=== PATIENT | female | born 1965 | race Caucasian/White ===

== ENCOUNTER → 2016-05-17 | Outpatient (CLI) | payer BC ==
[~2016-05-17] MED LIST: COMPAZINE 110 MG/TAB PO; LEVAQUIN 5500 MG/TA1 PO; POTASSIUM20 MEQ PO; ZOFRAN4 M1 PO; [UNRECOGNIZED DRUG - CODE] PO
== END ==
LOC: RAD 08:57
DX: C50.411 Malignant neoplasm of upper-outer quadrant of right female breast (principal); K80.80 Other cholelithiasis without obstruction
CPT/HCPCS: Q9967

== ENCOUNTER → 2016-06-02 | Outpatient (CLI) | payer BC ==
[2013-01-12 03:43] VITALS: BP 112/72
== END ==
LOC: LAB 08:10
DX: R42 Dizziness and giddiness (principal)

== ENCOUNTER → 2016-09-26 | Outpatient (CLI) | payer BC ==
[2013-01-12 03:43] VITALS: BP 112/72
== END ==
LOC: LAB 08:17
DX: C50.411 Malignant neoplasm of upper-outer quadrant of right female breast (principal)

== ENCOUNTER → 2017-03-27 | Outpatient (CLI) | payer BC ==
[2013-01-12 03:43] VITALS: BP 112/72
[2017-03-27 09:49] LABS: EOS # 0.2 (0.04-0.40); EOS % 3.1 % (1.0-5.0); HEMATOCRIT 44.9 % (37.0-47.0); HEMOGLOBIN 14.6 g/dL (12.5-16.0); LYMPH# 2.2 (1.50-4.00); MEAN CELL VOLUME 96 fl (78-100); MEAN CORPUSCULAR HEMOGLOBIN 31 pg (27-31); MEAN CORPUSCULAR HGB CONC 33 g/dL (33-37); MEAN PLATELET VOLUME 10.5 fl (7.4-10.4); MONO # 0.7 (0.20-0.80); NEU # 4.6 (1.40-6.50); PLATELET COUNT 268 K/mm3 (130-400); RED BLOOD COUNT 4.67 M/mm3 (4.10-5.30); RED CELL DISTRIBUTION WIDTH 13.3 % (11.5-14.5); WHITE BLOOD COUNT 7.7 K/mm3 (4.8-10.8)
[2017-03-27 11:22] LABS: BUN/CREATININE RATIO 9.2 (6.0-26.0); CALCIUM 9.3 mg/dL (8.4-10.2); POTASSIUM 3.3 mmol/L (3.6-5.0); TOTAL BILIRUBIN 0.4 mg/dL (0.2-1.3); TOTAL PROTEIN 7.5 g/dL (6.3-8.2)
== END ==
LOC: RAD 08:41
PROVIDERS: Internal Medicine
DX: C50.411 Malignant neoplasm of upper-outer quadrant of right female breast (principal); Z90.13 Acquired absence of bilateral breasts and nipples; J94.1 Fibrothorax; J98.4 Other disorders of lung; K80.20 Calculus of gallbladder without cholecystitis without obstruction; N20.0 Calculus of kidney; K76.9 Liver disease, unspecified
CPT/HCPCS: Q9967

== ENCOUNTER → 2017-05-01 | Day surgery (SDC) | payer BC ==
[2013-01-12 03:43] VITALS: BP 112/72
== END ==
LOC: MSO 08:37
DX: R10.13 Epigastric pain (principal); Z12.11 Encounter for screening for malignant neoplasm of colon; D12.0 Benign neoplasm of cecum; Z85.3 Personal history of malignant neoplasm of breast; F17.210 Nicotine dependence, cigarettes, uncomplicated; Z88.1 Allergy status to other antibiotic agents; K80.20 Calculus of gallbladder without cholecystitis without obstruction; Z88.0 Allergy status to penicillin; Z90.13 Acquired absence of bilateral breasts and nipples
CPT/HCPCS: 00811; J2704; J3010; J7120

== ENCOUNTER 2017-06-08 20:19 | Emergency (ER) | payer BC ==
[~2017-06-08] VITALS: Ht 167.6 cm; Wt 62.7 kg
[2017-06-08] MEDS ORDERED: TAMOXIFEN CITRA20 MG PO (22:10)
[2017-06-08 23:01] VITALS: BP 150/70
== END 2017-06-08 23:01 | disposition home or self-care (01) ==
LOC: ED 20:19
DX: K59.00 Constipation, unspecified (principal); K64.4 Residual hemorrhoidal skin tags

== ENCOUNTER → 2017-10-03 | Outpatient (CLI) | payer BC ==
[~2017-10-03] MED LIST changes: +TAMOXIFEN CITRA20 MG PO
[2017-10-03 08:21] LABS: CALCIUM 9.5 mg/dL (8.4-10.2); POTASSIUM 4.1 mmol/L (3.6-5.0); TOTAL BILIRUBIN 0.3 mg/dL (0.2-1.3); TOTAL PROTEIN 7.7 g/dL (6.3-8.2)
[2017-10-03 08:49] LABS: EOS # 0.3 (0.04-0.40); EOS % 3.7 % (1.0-5.0); HEMATOCRIT 44.5 % (37.0-47.0); HEMOGLOBIN 14.5 g/dL (12.5-16.0); LYMPH# 2.8 (1.50-4.00); MEAN CELL VOLUME 97 fl (78-100); MEAN CORPUSCULAR HEMOGLOBIN 32 pg (27-31); MEAN CORPUSCULAR HGB CONC 33 g/dL (33-37); MEAN PLATELET VOLUME 10.3 fl (7.4-10.4); PLATELET COUNT 267 K/mm3 (130-400); RED CELL DISTRIBUTION WIDTH 13.3 % (11.5-14.5); WHITE BLOOD COUNT 8.2 K/mm3 (4.8-10.8)
== END ==
LOC: LAB 07:50
PROVIDERS: Internal Medicine
DX: C50.919 Malignant neoplasm of unspecified site of unspecified female breast (principal)

== ENCOUNTER → 2017-10-12 | Outpatient (CLI) | payer BC | LOC: RAD 08:27 | DX: C78.7 Secondary malignant neoplasm of liver and intrahepatic bile duct (principal); K80.80 Other cholelithiasis without obstruction; G95.89 Other specified diseases of spinal cord; C50.919 Malignant neoplasm of unspecified site of unspecified female breast; M25.552 Pain in left hip; R97.8 Other abnormal tumor markers | CPT/HCPCS: Q9967 ==

== ENCOUNTER → 2017-11-01 | Outpatient (CLI) | payer BC ==
[2017-11-01 08:36] LABS: EOS # 0.1 (0.04-0.40); EOS % 1.2 % (1.0-5.0); HEMATOCRIT 42.6 % (37.0-47.0); HEMOGLOBIN 13.8 g/dL (12.5-16.0); LYMPH# 3.2 (1.50-4.00); MEAN CELL VOLUME 96 fl (78-100); MEAN CORPUSCULAR HEMOGLOBIN 31 pg (27-31); MEAN CORPUSCULAR HGB CONC 32 g/dL (33-37); MEAN PLATELET VOLUME 10.3 fl (7.4-10.4); MONO # 0.6 (0.20-0.80); NEU # 6.5 (1.40-6.50); PLATELET COUNT 240 K/mm3 (130-400); RED BLOOD COUNT 4.46 M/mm3 (4.10-5.30); RED CELL DISTRIBUTION WIDTH 13.1 % (11.5-14.5); WHITE BLOOD COUNT 10.4 K/mm3 (4.8-10.8)
[2017-11-01 09:12] LABS: ALBUMIN 4.1 g/dL (3.5-5.0); CALCIUM 9.3 mg/dL (8.4-10.2); POTASSIUM 3.1 mmol/L (3.6-5.0); TOTAL BILIRUBIN 0.5 mg/dL (0.2-1.3); TOTAL PROTEIN 7.4 g/dL (6.3-8.2)
== END ==
LOC: LAB 08:21
PROVIDERS: Internal Medicine
DX: C50.911 Malignant neoplasm of unspecified site of right female breast (principal)

== ENCOUNTER → 2017-11-08 | Outpatient (CLI) | payer BC ==
[2017-11-08 08:30] LABS: EOS # 0.1 (0.04-0.40); EOS % 1.7 % (1.0-5.0); HEMATOCRIT 42.3 % (37.0-47.0); HEMOGLOBIN 14.3 g/dL (12.5-16.0); LYMPH# 1.8 (1.50-4.00); MEAN CELL VOLUME 94 fl (78-100); MEAN CORPUSCULAR HEMOGLOBIN 32 pg (27-31); MEAN CORPUSCULAR HGB CONC 34 g/dL (33-37); MEAN PLATELET VOLUME 10.3 fl (7.4-10.4); MONO # 0.4 (0.20-0.80); NEU # 4.2 (1.40-6.50); PLATELET COUNT 273 K/mm3 (130-400); RED BLOOD COUNT 4.49 M/mm3 (4.10-5.30); RED CELL DISTRIBUTION WIDTH 12.9 % (11.5-14.5); WHITE BLOOD COUNT 6.4 K/mm3 (4.8-10.8)
[2017-11-08 08:44] LABS: ALBUMIN 4.3 g/dL (3.5-5.0); CALCIUM 9.1 mg/dL (8.4-10.2); POTASSIUM 3.7 mmol/L (3.6-5.0); TOTAL BILIRUBIN 0.5 mg/dL (0.2-1.3); TOTAL PROTEIN 7.7 g/dL (6.3-8.2)
== END ==
LOC: LAB 08:19
PROVIDERS: Internal Medicine
DX: C50.919 Malignant neoplasm of unspecified site of unspecified female breast (principal)

== ENCOUNTER → 2017-11-16 | Outpatient (CLI) | payer BC ==
[2017-11-16 11:22] LABS: EOS # 0.1 (0.04-0.40); EOS % 2.7 % (1.0-5.0); HEMATOCRIT 41.6 % (37.0-47.0); LYMPH# 1.4 (1.50-4.00); MEAN CELL VOLUME 96 fl (78-100); MEAN CORPUSCULAR HEMOGLOBIN 32 pg (27-31); MEAN CORPUSCULAR HGB CONC 34 g/dL (33-37); MEAN PLATELET VOLUME 10.5 fl (7.4-10.4); MONO # 0.2 (0.20-0.80); NEU # 2.7 (1.40-6.50); PLATELET COUNT 273 K/mm3 (130-400); RED BLOOD COUNT 4.35 M/mm3 (4.10-5.30); RED CELL DISTRIBUTION WIDTH 13.9 % (11.5-14.5); WHITE BLOOD COUNT 4.4 K/mm3 (4.8-10.8)
[2017-11-16 11:27] LABS: ALBUMIN 4.1 g/dL (3.5-5.0); TOTAL BILIRUBIN 0.4 mg/dL (0.2-1.3); TOTAL PROTEIN 7.4 g/dL (6.3-8.2)
== END ==
LOC: LAB 10:37
PROVIDERS: Internal Medicine
DX: C50.919 Malignant neoplasm of unspecified site of unspecified female breast (principal)

== ENCOUNTER → 2017-11-22 | Outpatient (CLI) | payer BC ==
[2017-11-22 08:51] LABS: HEMATOCRIT 39.4 % (37.0-47.0); HEMOGLOBIN 13.4 g/dL (12.5-16.0); MEAN CELL VOLUME 96 fl (78-100); MEAN CORPUSCULAR HEMOGLOBIN 33 pg (27-31); MEAN CORPUSCULAR HGB CONC 34 g/dL (33-37); MEAN PLATELET VOLUME 10.3 fl (7.4-10.4); PLATELET COUNT 339 K/mm3 (130-400); RED CELL DISTRIBUTION WIDTH 14.7 % (11.5-14.5); WHITE BLOOD COUNT 10.9 K/mm3 (4.8-10.8)
[2017-11-22 09:10] LABS: ALBUMIN 4.2 g/dL (3.5-5.0); CALCIUM 9.2 mg/dL (8.4-10.2); POTASSIUM 3.2 mmol/L (3.6-5.0); TOTAL BILIRUBIN 0.2 mg/dL (0.2-1.3); TOTAL PROTEIN 7.2 g/dL (6.3-8.2)
[2017-11-22 09:29] LABS: BAND 1 % (0-10); LYMPHOCYTE 27 % (20-51); MONOCYTE 3 % (3-10); NEUTROPHILS 69 % (42-75); NUCLEATED RED BLOOD CELL 1 (0-6)
== END ==
LOC: LAB 08:32
PROVIDERS: Internal Medicine
DX: C50.411 Malignant neoplasm of upper-outer quadrant of right female breast (principal); C78.7 Secondary malignant neoplasm of liver and intrahepatic bile duct; C79.51 Secondary malignant neoplasm of bone; Z17.0 Estrogen receptor positive status [ER+]

== ENCOUNTER → 2017-11-29 | Outpatient (CLI) | payer BC ==
[~2017-11-29] VITALS: Ht 167.6 cm; Wt 62.7 kg
[2017-11-29 13:23] VITALS: BP 118/73
[2017-11-29 13:32] LABS: HEMATOCRIT 38.5 % (37.0-47.0); HEMOGLOBIN 12.7 g/dL (12.5-16.0); MEAN CELL VOLUME 97 fl (78-100); MEAN CORPUSCULAR HEMOGLOBIN 32 pg (27-31); MEAN CORPUSCULAR HGB CONC 33 g/dL (33-37); MEAN PLATELET VOLUME 10.5 fl (7.4-10.4); PLATELET COUNT 327 K/mm3 (130-400); RED BLOOD COUNT 3.98 M/mm3 (4.10-5.30); WHITE BLOOD COUNT 11.8 K/mm3 (4.8-10.8)
[2017-11-29 13:41] LABS: CALCIUM 9.6 mg/dL (8.4-10.2); POTASSIUM 3.3 mmol/L (3.6-5.0); TOTAL BILIRUBIN 0.4 mg/dL (0.2-1.3); TOTAL PROTEIN 7.1 g/dL (6.3-8.2)
[2017-11-29 14:32] LABS: LYMPHOCYTE 35 % (20-51); MONOCYTE 3 % (3-10); NEUTROPHILS 62 % (42-75)
== END ==
LOC: AMSURD 12:57 → LAB 12:57
PROVIDERS: Internal Medicine
DX: C50.411 Malignant neoplasm of upper-outer quadrant of right female breast (principal); C78.7 Secondary malignant neoplasm of liver and intrahepatic bile duct; C79.51 Secondary malignant neoplasm of bone; Z17.0 Estrogen receptor positive status [ER+]

== ENCOUNTER → 2017-12-06 | Outpatient (CLI) | payer BC ==
[2017-11-29 13:23] VITALS: BP 118/73
[2017-12-06 08:55] LABS: ALBUMIN 4.1 g/dL (3.5-5.0); CALCIUM 9.2 mg/dL (8.4-10.2); HEMATOCRIT 40.4 % (37.0-47.0); HEMOGLOBIN 13.4 g/dL (12.5-16.0); MEAN CELL VOLUME 99 fl (78-100); MEAN CORPUSCULAR HEMOGLOBIN 33 pg (27-31); MEAN CORPUSCULAR HGB CONC 33 g/dL (33-37); MEAN PLATELET VOLUME 10.8 fl (7.4-10.4); PLATELET COUNT 346 K/mm3 (130-400); POTASSIUM 4.4 mmol/L (3.6-5.0); RED BLOOD COUNT 4.09 M/mm3 (4.10-5.30); RED CELL DISTRIBUTION WIDTH 15.7 % (11.5-14.5); TOTAL BILIRUBIN 0.5 mg/dL (0.2-1.3); TOTAL PROTEIN 7.3 g/dL (6.3-8.2); WHITE BLOOD COUNT 9.6 K/mm3 (4.8-10.8)
[2017-12-06 11:59] LABS: LYMPHOCYTE 44 % (20-51); MONOCYTE 4 % (3-10); NEUTROPHILS 51 % (42-75)
== END ==
LOC: LAB 08:14
PROVIDERS: Internal Medicine
DX: C50.411 Malignant neoplasm of upper-outer quadrant of right female breast (principal); C78.7 Secondary malignant neoplasm of liver and intrahepatic bile duct; C79.51 Secondary malignant neoplasm of bone; Z17.0 Estrogen receptor positive status [ER+]

== ENCOUNTER → 2017-12-13 | Outpatient (CLI) | payer BC ==
[2017-11-29 13:23] VITALS: BP 118/73
[2017-12-13 08:55] LABS: EOS # 0.1 (0.04-0.40); EOS % 0.8 % (1.0-5.0); HEMATOCRIT 39.1 % (37.0-47.0); HEMOGLOBIN 13.1 g/dL (12.5-16.0); LYMPH# 2.6 (1.50-4.00); MEAN CELL VOLUME 99 fl (78-100); MEAN CORPUSCULAR HEMOGLOBIN 33 pg (27-31); MEAN CORPUSCULAR HGB CONC 34 g/dL (33-37); MEAN PLATELET VOLUME 10.2 fl (7.4-10.4); MONO # 0.5 (0.20-0.80); NEU # 5.8 (1.40-6.50); PLATELET COUNT 291 K/mm3 (130-400); RED BLOOD COUNT 3.97 M/mm3 (4.10-5.30); RED CELL DISTRIBUTION WIDTH 16.3 % (11.5-14.5)
[2017-12-13 09:18] LABS: ALBUMIN 3.9 g/dL (3.5-5.0); CALCIUM 9.1 mg/dL (8.4-10.2); POTASSIUM 3.5 mmol/L (3.6-5.0); TOTAL BILIRUBIN 0.4 mg/dL (0.2-1.3); TOTAL PROTEIN 7.1 g/dL (6.3-8.2)
== END ==
LOC: LAB 08:40
PROVIDERS: Internal Medicine
DX: C50.411 Malignant neoplasm of upper-outer quadrant of right female breast (principal); C78.7 Secondary malignant neoplasm of liver and intrahepatic bile duct; C79.51 Secondary malignant neoplasm of bone; Z17.0 Estrogen receptor positive status [ER+]

== ENCOUNTER → 2017-12-20 | Outpatient (CLI) | payer BC ==
[2017-11-29 13:23] VITALS: BP 118/73
[2017-12-20 08:53] LABS: EOS # 0.1 (0.04-0.40); EOS % 0.7 % (1.0-5.0); HEMATOCRIT 41.4 % (37.0-47.0); HEMOGLOBIN 13.7 g/dL (12.5-16.0); LYMPH# 3.7 (1.50-4.00); MEAN CELL VOLUME 98 fl (78-100); MEAN CORPUSCULAR HEMOGLOBIN 33 pg (27-31); MEAN CORPUSCULAR HGB CONC 33 g/dL (33-37); MEAN PLATELET VOLUME 10.6 fl (7.4-10.4); MONO # 0.6 (0.20-0.80); NEU # 3.9 (1.40-6.50); PLATELET COUNT 328 K/mm3 (130-400); RED BLOOD COUNT 4.22 M/mm3 (4.10-5.30); RED CELL DISTRIBUTION WIDTH 16.5 % (11.5-14.5); WHITE BLOOD COUNT 8.2 K/mm3 (4.8-10.8)
[2017-12-20 09:02] LABS: ALBUMIN 4.1 g/dL (3.5-5.0); CALCIUM 9.1 mg/dL (8.4-10.2); POTASSIUM 3.3 mmol/L (3.6-5.0); TOTAL BILIRUBIN 0.5 mg/dL (0.2-1.3); TOTAL PROTEIN 7.2 g/dL (6.3-8.2)
== END ==
LOC: LAB 08:30
PROVIDERS: Internal Medicine
DX: C50.411 Malignant neoplasm of upper-outer quadrant of right female breast (principal); C78.7 Secondary malignant neoplasm of liver and intrahepatic bile duct; C79.51 Secondary malignant neoplasm of bone; Z17.0 Estrogen receptor positive status [ER+]

== ENCOUNTER → 2017-12-22 | Outpatient (CLI) | payer BC ==
[2017-11-29 13:23] VITALS: BP 118/73
== END ==
LOC: RAD 08:54
DX: C78.7 Secondary malignant neoplasm of liver and intrahepatic bile duct (principal); M89.9 Disorder of bone, unspecified; C50.411 Malignant neoplasm of upper-outer quadrant of right female breast; Z92.3 Personal history of irradiation
CPT/HCPCS: Q9967

== ENCOUNTER → 2017-12-28 | Outpatient (CLI) | payer BC ==
[2017-11-29 13:23] VITALS: BP 118/73
[2017-12-28 09:10] LABS: EOS # 0.1 (0.04-0.40); HEMATOCRIT 41.5 % (37.0-47.0); HEMOGLOBIN 13.8 g/dL (12.5-16.0); LYMPH# 2.1 (1.50-4.00); MEAN CELL VOLUME 100 fl (78-100); MEAN CORPUSCULAR HEMOGLOBIN 33 pg (27-31); MEAN CORPUSCULAR HGB CONC 33 g/dL (33-37); MEAN PLATELET VOLUME 10.7 fl (7.4-10.4); MONO # 0.4 (0.20-0.80); NEU # 5.2 (1.40-6.50); PLATELET COUNT 298 K/mm3 (130-400); RED BLOOD COUNT 4.17 M/mm3 (4.10-5.30); RED CELL DISTRIBUTION WIDTH 16.8 % (11.5-14.5); WHITE BLOOD COUNT 7.9 K/mm3 (4.8-10.8)
[2017-12-28 09:32] LABS: ALBUMIN 4.3 g/dL (3.5-5.0); CALCIUM 9.3 mg/dL (8.4-10.2); POTASSIUM 3.8 mmol/L (3.6-5.0); TOTAL BILIRUBIN 0.4 mg/dL (0.2-1.3); TOTAL PROTEIN 7.4 g/dL (6.3-8.2)
== END ==
LOC: LAB 08:56
PROVIDERS: Internal Medicine
DX: C50.411 Malignant neoplasm of upper-outer quadrant of right female breast (principal); C78.7 Secondary malignant neoplasm of liver and intrahepatic bile duct; C79.51 Secondary malignant neoplasm of bone; Z17.0 Estrogen receptor positive status [ER+]

== ENCOUNTER → 2018-01-03 | Outpatient (CLI) | payer BC ==
[2017-11-29 13:23] VITALS: BP 118/73
[2018-01-03 12:10] LABS: ALBUMIN 4.2 g/dL (3.5-5.0); CALCIUM 9.3 mg/dL (8.4-10.2); POTASSIUM 4.8 mmol/L (3.6-5.0); TOTAL BILIRUBIN 0.4 mg/dL (0.2-1.3); TOTAL PROTEIN 7.2 g/dL (6.3-8.2)
[2018-01-03 12:14] LABS: EOS # 0.1 (0.04-0.40); EOS % 0.7 % (1.0-5.0); HEMATOCRIT 39.5 % (37.0-47.0); HEMOGLOBIN 13.3 g/dL (12.5-16.0); MEAN CELL VOLUME 100 fl (78-100); MEAN CORPUSCULAR HEMOGLOBIN 34 pg (27-31); MEAN CORPUSCULAR HGB CONC 34 g/dL (33-37); MEAN PLATELET VOLUME 10.7 fl (7.4-10.4); MONO # 0.6 (0.20-0.80); PLATELET COUNT 306 K/mm3 (130-400); RED BLOOD COUNT 3.96 M/mm3 (4.10-5.30); RED CELL DISTRIBUTION WIDTH 16.7 % (11.5-14.5)
[2018-01-03 12:29] LABS: NEU # 9.2 (1.40-6.50)
== END ==
LOC: LAB 11:32
PROVIDERS: Internal Medicine
DX: C50.919 Malignant neoplasm of unspecified site of unspecified female breast (principal)

== ENCOUNTER → 2018-01-11 | Outpatient (CLI) | payer BC ==
[2017-11-29 13:23] VITALS: BP 118/73
[2018-01-11 09:15] LABS: EOS # 0.1 (0.04-0.40); EOS % 0.7 % (1.0-5.0); HEMATOCRIT 42.6 % (37.0-47.0); HEMOGLOBIN 13.9 g/dL (12.5-16.0); LYMPH# 2.6 (1.50-4.00); MEAN CELL VOLUME 100 fl (78-100); MEAN CORPUSCULAR HEMOGLOBIN 33 pg (27-31); MEAN CORPUSCULAR HGB CONC 33 g/dL (33-37); MEAN PLATELET VOLUME 10.8 fl (7.4-10.4); MONO # 0.4 (0.20-0.80); NEU # 4.1 (1.40-6.50); PLATELET COUNT 291 K/mm3 (130-400); RED BLOOD COUNT 4.27 M/mm3 (4.10-5.30); RED CELL DISTRIBUTION WIDTH 16.6 % (11.5-14.5); WHITE BLOOD COUNT 7.1 K/mm3 (4.8-10.8)
[2018-01-11 09:18] LABS: ALBUMIN 4.4 g/dL (3.5-5.0); CALCIUM 9.2 mg/dL (8.4-10.2); POTASSIUM 4.1 mmol/L (3.6-5.0); TOTAL BILIRUBIN 0.5 mg/dL (0.2-1.3); TOTAL PROTEIN 7.4 g/dL (6.3-8.2)
== END ==
LOC: LAB 08:29
PROVIDERS: Internal Medicine
DX: C50.919 Malignant neoplasm of unspecified site of unspecified female breast (principal)

== ENCOUNTER → 2018-01-18 | Outpatient (CLI) | payer BC ==
[2017-11-29 13:23] VITALS: BP 118/73
[2018-01-18 09:34] LABS: EOS # 0.1 (0.04-0.40); EOS % 1.1 % (1.0-5.0); HEMATOCRIT 39.1 % (37.0-47.0); MEAN CELL VOLUME 100 fl (78-100); MEAN CORPUSCULAR HEMOGLOBIN 33 pg (27-31); MEAN CORPUSCULAR HGB CONC 33 g/dL (33-37); MEAN PLATELET VOLUME 10.9 fl (7.4-10.4); MONO # 0.4 (0.20-0.80); NEU # 3.9 (1.40-6.50); PLATELET COUNT 277 K/mm3 (130-400); RED CELL DISTRIBUTION WIDTH 16.2 % (11.5-14.5); WHITE BLOOD COUNT 6.5 K/mm3 (4.8-10.8)
[2018-01-18 09:39] LABS: ALBUMIN 4.3 g/dL (3.5-5.0); CALCIUM 9.2 mg/dL (8.4-10.2); POTASSIUM 3.5 mmol/L (3.6-5.0); TOTAL BILIRUBIN 0.4 mg/dL (0.2-1.3); TOTAL PROTEIN 7.2 g/dL (6.3-8.2)
== END ==
LOC: LAB 09:04
PROVIDERS: Internal Medicine
DX: C50.919 Malignant neoplasm of unspecified site of unspecified female breast (principal)

== ENCOUNTER 2018-01-24 20:30 | Emergency (ER) | payer BC ==
[~2018-01-24] VITALS: Ht 167.6 cm; Wt 60.9 kg
[2018-01-24] MEDS ORDERED: ZANTAC150 M1 PO (20:43)
[2018-01-24] MEDS ORDERED: NYSTATIN 100MU/M1 ML PO (20:43)
[2018-01-24] MEDS ORDERED: COMPAZINE10 M2 PO (20:44)
[2018-01-24 21:37] LABS: EOS # 0.1 (0.04-0.40); EOS % 1.4 % (1.0-5.0); HEMATOCRIT 34.8 % (37.0-47.0); HEMOGLOBIN 11.9 g/dL (12.5-16.0); LYMPH# 3.1 (1.50-4.00); MEAN CELL VOLUME 100 fl (78-100); MEAN CORPUSCULAR HEMOGLOBIN 34 pg (27-31); MEAN CORPUSCULAR HGB CONC 34 g/dL (33-37); MEAN PLATELET VOLUME 10.7 fl (7.4-10.4); MONO # 0.5 (0.20-0.80); NEU # 4.1 (1.40-6.50); PLATELET COUNT 252 K/mm3 (130-400); RED BLOOD COUNT 3.49 M/mm3 (4.10-5.30); RED CELL DISTRIBUTION WIDTH 16.1 % (11.5-14.5); WHITE BLOOD COUNT 7.9 K/mm3 (4.8-10.8)
[2018-01-24 21:40] LABS: ALBUMIN 3.9 g/dL (3.5-5.0); CALCIUM 9.2 mg/dL (8.4-10.2); POTASSIUM 3.4 mmol/L (3.6-5.0); TOTAL BILIRUBIN 0.4 mg/dL (0.2-1.3); TOTAL PROTEIN 6.5 g/dL (6.3-8.2)
[2018-01-24 21:43] LABS: PARTIAL THROMBOPLASTIN TIME 27.7 SECONDS (21.0-32.0); PROTHROMBIN TIME 9.6 SECONDS (9.0-12.0)
[2018-01-24 23:14] LABS: PH-URINE 6.5 (5.0 - 8.0); URINE APPEARANCE CLEAR; URINE COLOR LT YELLOW
[2018-01-24 23:15] LABS: URINE BILIRUBIN NEGATIVE (NEGATIVE); URINE BLOOD TRACE (NEGATIVE); URINE GLUCOSE NEGATIVE (NEGATIVE); URINE KETONE NEGATIVE (NEGATIVE); URINE LEUKOCYTE ESTERASE NEGATIVE (NEGATIVE); URINE NITRATE NEGATIVE (NEGATIVE); URINE PROTEIN(semi-quant) TRACE mg/dL (NEGATIVE); URINE UROBILINOGEN NORMAL (NORMAL)
[2018-01-24 23:22] LABS: URINE WBC 0-1 /hpf (0-3)
[2018-01-24 23:39] VITALS: BP 104/64
== END 2018-01-24 23:39 | disposition home or self-care (01) ==
LOC: ED 20:30
PROVIDERS: Nurse Practitioner
DX: E86.0 Dehydration (principal); R11.0 Nausea; C50.919 Malignant neoplasm of unspecified site of unspecified female breast; C78.7 Secondary malignant neoplasm of liver and intrahepatic bile duct; C79.51 Secondary malignant neoplasm of bone; Z79.899 Other long term (current) drug therapy; Z90.13 Acquired absence of bilateral breasts and nipples; F17.210 Nicotine dependence, cigarettes, uncomplicated
CPT/HCPCS: J2550; J7030; Q9967

== ENCOUNTER → 2018-02-01 | Outpatient (CLI) | payer BC ==
[2018-01-24 23:39] VITALS: BP 104/64
[~2018-02-01] MED LIST changes: +COMPAZINE10 M2 PO; +NYSTATIN 100MU/M1 ML PO; +ZANTAC150 M1 PO
[2018-02-01 09:30] LABS: EOS # 0.1 (0.04-0.40); EOS % 0.8 % (1.0-5.0); HEMATOCRIT 38.5 % (37.0-47.0); HEMOGLOBIN 12.8 g/dL (12.5-16.0); LYMPH# 1.9 (1.50-4.00); MEAN CELL VOLUME 102 fl (78-100); MEAN CORPUSCULAR HEMOGLOBIN 34 pg (27-31); MEAN CORPUSCULAR HGB CONC 33 g/dL (33-37); MEAN PLATELET VOLUME 10.3 fl (7.4-10.4); MONO # 0.4 (0.20-0.80); NEU # 3.7 (1.40-6.50); PLATELET COUNT 321 K/mm3 (130-400); RED BLOOD COUNT 3.79 M/mm3 (4.10-5.30); RED CELL DISTRIBUTION WIDTH 16.2 % (11.5-14.5); WHITE BLOOD COUNT 6.1 K/mm3 (4.8-10.8)
[2018-02-01 09:36] LABS: ALBUMIN 4.1 g/dL (3.5-5.0); CALCIUM 9.2 mg/dL (8.4-10.2); POTASSIUM 3.9 mmol/L (3.6-5.0); TOTAL BILIRUBIN 0.5 mg/dL (0.2-1.3); TOTAL PROTEIN 6.8 g/dL (6.3-8.2)
== END ==
LOC: LAB 09:12
PROVIDERS: Internal Medicine
DX: C50.919 Malignant neoplasm of unspecified site of unspecified female breast (principal)

== ENCOUNTER → 2018-02-09 | Outpatient (CLI) | payer BC ==
[2018-01-24 23:39] VITALS: BP 104/64
[2018-02-09 09:43] LABS: EOS % 0.6 % (1.0-5.0); HEMATOCRIT 41.3 % (37.0-47.0); HEMOGLOBIN 13.7 g/dL (12.5-16.0); LYMPH# 1.6 (1.50-4.00); MEAN CELL VOLUME 102 fl (78-100); MEAN CORPUSCULAR HEMOGLOBIN 34 pg (27-31); MEAN CORPUSCULAR HGB CONC 33 g/dL (33-37); MEAN PLATELET VOLUME 10.2 fl (7.4-10.4); MONO # 0.4 (0.20-0.80); NEU # 4.2 (1.40-6.50); PLATELET COUNT 296 K/mm3 (130-400); RED BLOOD COUNT 4.04 M/mm3 (4.10-5.30); RED CELL DISTRIBUTION WIDTH 15.3 % (11.5-14.5); WHITE BLOOD COUNT 6.3 K/mm3 (4.8-10.8)
[2018-02-09 10:22] LABS: ALBUMIN 4.3 g/dL (3.5-5.0); CALCIUM 9.2 mg/dL (8.4-10.2); POTASSIUM 3.6 mmol/L (3.6-5.0); TOTAL BILIRUBIN 0.4 mg/dL (0.2-1.3); TOTAL PROTEIN 7.4 g/dL (6.3-8.2)
== END ==
LOC: LAB 09:32
PROVIDERS: Internal Medicine
DX: C50.919 Malignant neoplasm of unspecified site of unspecified female breast (principal)

== ENCOUNTER → 2018-02-15 | Outpatient (CLI) | payer BC ==
[2018-01-24 23:39] VITALS: BP 104/64
[2018-02-15 08:41] LABS: BASO # 0.1 (0.02-0.10); EOS # 0.1 (0.04-0.40); EOS % 1.2 % (1.0-5.0); HEMATOCRIT 40.3 % (37.0-47.0); HEMOGLOBIN 13.6 g/dL (12.5-16.0); LYMPH# 2.3 (1.50-4.00); MEAN CELL VOLUME 103 fl (78-100); MEAN CORPUSCULAR HEMOGLOBIN 35 pg (27-31); MEAN CORPUSCULAR HGB CONC 34 g/dL (33-37); MEAN PLATELET VOLUME 10.2 fl (7.4-10.4); NEU # 5.5 (1.40-6.50); PLATELET COUNT 344 K/mm3 (130-400); RED BLOOD COUNT 3.91 M/mm3 (4.10-5.30); RED CELL DISTRIBUTION WIDTH 15.3 % (11.5-14.5)
[2018-02-15 10:12] LABS: ALBUMIN 4.1 g/dL (3.5-5.0); CALCIUM 9.4 mg/dL (8.4-10.2); POTASSIUM 4.6 mmol/L (3.6-5.0); TOTAL BILIRUBIN 0.2 mg/dL (0.2-1.3); TOTAL PROTEIN 7.2 g/dL (6.3-8.2)
== END ==
LOC: LAB 08:05
PROVIDERS: Internal Medicine
DX: C50.411 Malignant neoplasm of upper-outer quadrant of right female breast (principal); C78.7 Secondary malignant neoplasm of liver and intrahepatic bile duct; C79.51 Secondary malignant neoplasm of bone

== ENCOUNTER → 2018-02-21 | Outpatient (CLI) | payer BC ==
[2018-01-24 23:39] VITALS: BP 104/64
== END ==
LOC: RAD 09:01
DX: C78.7 Secondary malignant neoplasm of liver and intrahepatic bile duct (principal); M89.9 Disorder of bone, unspecified; C50.919 Malignant neoplasm of unspecified site of unspecified female breast; Z95.828 Presence of other vascular implants and grafts
CPT/HCPCS: J1644; Q9967

== ENCOUNTER → 2018-02-26 | Outpatient (CLI) | payer BC ==
[2018-02-26 08:50] LABS: EOS # 0.2 (0.04-0.40); EOS % 1.7 % (1.0-5.0); HEMATOCRIT 44.2 % (37.0-47.0); HEMOGLOBIN 14.5 g/dL (12.5-16.0); LYMPH# 2.2 (1.50-4.00); MEAN CELL VOLUME 102 fl (78-100); MEAN CORPUSCULAR HEMOGLOBIN 33 pg (27-31); MEAN CORPUSCULAR HGB CONC 33 g/dL (33-37); MEAN PLATELET VOLUME 9.5 fl (7.4-10.4); MONO # 1.1 (0.20-0.80); NEU # 5.9 (1.40-6.50); PLATELET COUNT 368 K/mm3 (130-400); RED BLOOD COUNT 4.35 M/mm3 (4.10-5.30); RED CELL DISTRIBUTION WIDTH 14.1 % (11.5-14.5); WHITE BLOOD COUNT 9.4 K/mm3 (4.8-10.8)
[2018-02-26 09:05] LABS: ALBUMIN 4.5 g/dL (3.5-5.0); CALCIUM 9.9 mg/dL (8.4-10.2); POTASSIUM 3.5 mmol/L (3.6-5.0); TOTAL BILIRUBIN 0.2 mg/dL (0.2-1.3); TOTAL PROTEIN 7.7 g/dL (6.3-8.2)
== END ==
LOC: LAB 08:26
PROVIDERS: Internal Medicine
DX: C50.411 Malignant neoplasm of upper-outer quadrant of right female breast (principal); C78.7 Secondary malignant neoplasm of liver and intrahepatic bile duct; C79.51 Secondary malignant neoplasm of bone

== ENCOUNTER → 2018-03-21 | Outpatient (CLI) | payer BC ==
[2018-03-21 08:54] LABS: EOS # 0.1 (0.04-0.40); HEMATOCRIT 43.2 % (37.0-47.0); HEMOGLOBIN 14.3 g/dL (12.5-16.0); LYMPH# 2.2 (1.50-4.00); MEAN CELL VOLUME 100 fl (78-100); MEAN CORPUSCULAR HEMOGLOBIN 33 pg (27-31); MEAN CORPUSCULAR HGB CONC 33 g/dL (33-37); MEAN PLATELET VOLUME 9.8 fl (7.4-10.4); NEU # 7.4 (1.40-6.50); PLATELET COUNT 295 K/mm3 (130-400); RED BLOOD COUNT 4.33 M/mm3 (4.10-5.30); RED CELL DISTRIBUTION WIDTH 12.8 % (11.5-14.5); WHITE BLOOD COUNT 10.7 K/mm3 (4.8-10.8)
[2018-03-21 09:38] LABS: ALBUMIN 4.3 g/dL (3.5-5.0); AST-SGOT 32 U/L (14-36); CALCIUM 9.7 mg/dL (8.4-10.2); CARBON DIOXIDE 27 mmol/L (22-30); GLUCOSE 81 mg/dL (65-105); POTASSIUM 3.4 mmol/L (3.6-5.0); SODIUM 140 mmol/L (137-145); TOTAL BILIRUBIN 0.3 mg/dL (0.2-1.3); TOTAL PROTEIN 7.4 g/dL (6.3-8.2)
[2018-03-21 09:46] LABS: ALT/SGPT < 3 U/L (9-52)
== END ==
LOC: LAB 08:34
PROVIDERS: Internal Medicine
DX: C50.919 Malignant neoplasm of unspecified site of unspecified female breast (principal)

== ENCOUNTER → 2018-04-11 | Outpatient (CLI) | payer BC ==
[2018-04-11 09:11] LABS: EOS # 0.1 (0.04-0.40); EOS % 1.9 % (1.0-5.0); HEMATOCRIT 43.5 % (37.0-47.0); HEMOGLOBIN 14.5 g/dL (12.5-16.0); LYMPH# 2.5 (1.50-4.00); MEAN CELL VOLUME 98 fl (78-100); MEAN CORPUSCULAR HEMOGLOBIN 33 pg (27-31); MEAN CORPUSCULAR HGB CONC 33 g/dL (33-37); MEAN PLATELET VOLUME 9.9 fl (7.4-10.4); MONO # 0.7 (0.20-0.80); NEU # 4.2 (1.40-6.50); PLATELET COUNT 304 K/mm3 (130-400); RED BLOOD COUNT 4.45 M/mm3 (4.10-5.30); RED CELL DISTRIBUTION WIDTH 12.9 % (11.5-14.5); WHITE BLOOD COUNT 7.5 K/mm3 (4.8-10.8)
[2018-04-11 09:14] LABS: ALBUMIN 4.3 g/dL (3.5-5.0); CALCIUM 9.5 mg/dL (8.4-10.2); POTASSIUM 3.3 mmol/L (3.6-5.0); TOTAL BILIRUBIN 0.4 mg/dL (0.2-1.3); TOTAL PROTEIN 7.6 g/dL (6.3-8.2)
== END ==
LOC: LAB 08:25
PROVIDERS: Internal Medicine
DX: C50.411 Malignant neoplasm of upper-outer quadrant of right female breast (principal)

== ENCOUNTER → 2018-05-02 | Outpatient (CLI) | payer BC ==
[2018-05-02 09:11] LABS: EOS % 1.6 % (1.0-5.0); HEMATOCRIT 44.9 % (37.0-47.0); HEMOGLOBIN 14.4 g/dL (12.5-16.0); LYMPH# 2.4 (1.50-4.00); MEAN CELL VOLUME 98 fl (78-100); MEAN CORPUSCULAR HEMOGLOBIN 31 pg (27-31); MEAN CORPUSCULAR HGB CONC 32 g/dL (33-37); MEAN PLATELET VOLUME 9.8 fl (7.4-10.4); MONO # 0.7 (0.20-0.80); NEU # 4.3 (1.40-6.50); PLATELET COUNT 301 K/mm3 (130-400); RED BLOOD COUNT 4.59 M/mm3 (4.10-5.30); RED CELL DISTRIBUTION WIDTH 13.1 % (11.5-14.5); WHITE BLOOD COUNT 7.5 K/mm3 (4.8-10.8)
[2018-05-02 09:12] LABS: EOS # 0.1 (0.04-0.40)
[2018-05-02 09:38] LABS: ALBUMIN 4.5 g/dL (3.5-5.0); CALCIUM 9.4 mg/dL (8.4-10.2); POTASSIUM 3.5 mmol/L (3.6-5.0); TOTAL BILIRUBIN 0.3 mg/dL (0.2-1.3); TOTAL PROTEIN 7.7 g/dL (6.3-8.2)
== END ==
LOC: LAB 08:44
PROVIDERS: Internal Medicine
DX: C50.919 Malignant neoplasm of unspecified site of unspecified female breast (principal)

== ENCOUNTER → 2018-05-18 | Outpatient (CLI) | payer BC | LOC: RAD 08:56 | DX: C79.51 Secondary malignant neoplasm of bone (principal); C50.411 Malignant neoplasm of upper-outer quadrant of right female breast | CPT/HCPCS: Q9967 ==

== ENCOUNTER → 2018-05-23 | Outpatient (CLI) | payer BC ==
[2018-05-23 09:19] LABS: EOS # 0.2 (0.04-0.40); EOS % 2.2 % (1.0-5.0); HEMATOCRIT 45.5 % (37.0-47.0); HEMOGLOBIN 14.9 g/dL (12.5-16.0); LYMPH# 2.7 (1.50-4.00); MEAN CELL VOLUME 96 fl (78-100); MEAN CORPUSCULAR HEMOGLOBIN 31 pg (27-31); MEAN CORPUSCULAR HGB CONC 33 g/dL (33-37); MEAN PLATELET VOLUME 9.8 fl (7.4-10.4); MONO # 0.8 (0.20-0.80); NEU # 3.2 (1.40-6.50); PLATELET COUNT 274 K/mm3 (130-400); RED BLOOD COUNT 4.75 M/mm3 (4.10-5.30); RED CELL DISTRIBUTION WIDTH 13.4 % (11.5-14.5); WHITE BLOOD COUNT 6.9 K/mm3 (4.8-10.8)
[2018-05-23 09:47] LABS: ALBUMIN 4.4 g/dL (3.5-5.0); CALCIUM 9.8 mg/dL (8.4-10.2); POTASSIUM 3.6 mmol/L (3.6-5.0); TOTAL BILIRUBIN 0.3 mg/dL (0.2-1.3); TOTAL PROTEIN 7.9 g/dL (6.3-8.2)
== END ==
LOC: LAB 08:34
PROVIDERS: Internal Medicine
DX: C50.411 Malignant neoplasm of upper-outer quadrant of right female breast (principal)

== ENCOUNTER → 2018-06-13 | Outpatient (CLI) | payer BC ==
[2018-06-13 08:50] LABS: EOS # 0.2 (0.04-0.40); EOS % 2.6 % (1.0-5.0); HEMATOCRIT 44.1 % (37.0-47.0); HEMOGLOBIN 14.7 g/dL (12.5-16.0); LYMPH# 2.7 (1.50-4.00); MEAN CELL VOLUME 95 fl (78-100); MEAN CORPUSCULAR HEMOGLOBIN 32 pg (27-31); MEAN CORPUSCULAR HGB CONC 33 g/dL (33-37); MEAN PLATELET VOLUME 9.5 fl (7.4-10.4); MONO # 0.8 (0.20-0.80); NEU # 3.5 (1.40-6.50); PLATELET COUNT 322 K/mm3 (130-400); RED BLOOD COUNT 4.66 M/mm3 (4.10-5.30); RED CELL DISTRIBUTION WIDTH 13.8 % (11.5-14.5); WHITE BLOOD COUNT 7.3 K/mm3 (4.8-10.8)
[2018-06-13 08:54] LABS: ALBUMIN 4.5 g/dL (3.5-5.0); CALCIUM 9.7 mg/dL (8.4-10.2); POTASSIUM 3.8 mmol/L (3.6-5.0); TOTAL BILIRUBIN 0.4 mg/dL (0.2-1.3); TOTAL PROTEIN 7.9 g/dL (6.3-8.2)
== END ==
LOC: LAB 08:30
PROVIDERS: Internal Medicine
DX: C50.411 Malignant neoplasm of upper-outer quadrant of right female breast (principal)

== ENCOUNTER → 2018-07-04 | Outpatient (CLI) | payer BC ==
[2018-07-04 09:14] LABS: ALBUMIN 4.2 g/dL (3.5-5.0); CALCIUM 10.1 mg/dL (8.4-10.2); TOTAL BILIRUBIN 0.3 mg/dL (0.2-1.2); TOTAL PROTEIN 7.4 g/dL (6.4-8.3)
[2018-07-04 09:35] LABS: HEMOGLOBIN 14.7 g/dL (12.5-16.0); MEAN CELL VOLUME 94 fl (78-100); MEAN CORPUSCULAR HEMOGLOBIN 31 pg (27-31); MEAN CORPUSCULAR HGB CONC 33 g/dL (33-37); MEAN PLATELET VOLUME 10.2 fl (7.4-10.4); PLATELET COUNT 282 K/mm3 (130-400); RED BLOOD COUNT 4.78 M/mm3 (4.10-5.30); RED CELL DISTRIBUTION WIDTH 14.2 % (11.5-14.5); WHITE BLOOD COUNT 6.8 K/mm3 (4.8-10.8)
[2018-07-04 10:13] LABS: LYMPHOCYTE 37 % (20-51); MONOCYTE 11 % (3-10); NEUTROPHILS 48 % (42-75)
== END ==
LOC: LAB 08:25
PROVIDERS: Internal Medicine
DX: C50.411 Malignant neoplasm of upper-outer quadrant of right female breast (principal)

== ENCOUNTER → 2018-08-01 | Outpatient (CLI) | payer BC ==
[2018-08-01 08:40] LABS: EOS # 0.2 (0.04-0.40); EOS % 2.9 % (1.0-5.0); HEMATOCRIT 43.1 % (37.0-47.0); HEMOGLOBIN 14.5 g/dL (12.5-16.0); LYMPH# 2.5 (1.50-4.00); MEAN CELL VOLUME 95 fl (78-100); MEAN CORPUSCULAR HEMOGLOBIN 32 pg (27-31); MEAN CORPUSCULAR HGB CONC 34 g/dL (33-37); MEAN PLATELET VOLUME 9.4 fl (7.4-10.4); MONO # 0.9 (0.20-0.80); NEU # 3.9 (1.40-6.50); PLATELET COUNT 288 K/mm3 (130-400); RED BLOOD COUNT 4.56 M/mm3 (4.10-5.30); RED CELL DISTRIBUTION WIDTH 14.2 % (11.5-14.5); WHITE BLOOD COUNT 7.6 K/mm3 (4.8-10.8)
[2018-08-01 09:17] LABS: ALBUMIN 4.1 g/dL (3.5-5.0); CALCIUM 9.8 mg/dL (8.3-10.5); POTASSIUM 3.7 mmol/L (3.5-5.1); TOTAL BILIRUBIN 0.3 mg/dL (0.2-1.2); TOTAL PROTEIN 6.7 g/dL (6.4-8.3)
== END ==
LOC: LAB 08:27
PROVIDERS: Internal Medicine
DX: C50.411 Malignant neoplasm of upper-outer quadrant of right female breast (principal)

== ENCOUNTER → 2018-08-14 | Outpatient (CLI) | payer BC ==
[2018-08-14 08:45] LABS: EOS # 0.3 (0.04-0.40); EOS % 4.3 % (1.0-5.0); HEMATOCRIT 44.5 % (37.0-47.0); HEMOGLOBIN 14.8 g/dL (12.5-16.0); LYMPH# 2.5 (1.50-4.00); MEAN CELL VOLUME 96 fl (78-100); MEAN CORPUSCULAR HEMOGLOBIN 32 pg (27-31); MEAN CORPUSCULAR HGB CONC 33 g/dL (33-37); MEAN PLATELET VOLUME 9.5 fl (7.4-10.4); MONO # 0.9 (0.20-0.80); NEU # 3.8 (1.40-6.50); PLATELET COUNT 316 K/mm3 (130-400); RED BLOOD COUNT 4.66 M/mm3 (4.10-5.30); RED CELL DISTRIBUTION WIDTH 14.1 % (11.5-14.5); WHITE BLOOD COUNT 7.5 K/mm3 (4.8-10.8)
[2018-08-14 08:53] LABS: ALBUMIN 4.2 g/dL (3.5-5.0); POTASSIUM 3.7 mmol/L (3.5-5.1)
[2018-08-14 08:54] LABS: CALCIUM 10.1 mg/dL (8.3-10.5)
[2018-08-14 08:55] LABS: TOTAL PROTEIN 7.8 g/dL (6.4-8.3)
[2018-08-14 08:57] LABS: TOTAL BILIRUBIN 0.4 mg/dL (0.2-1.2)
== END ==
LOC: LAB 08:35 → RAD 09:00
PROVIDERS: Internal Medicine
DX: C50.411 Malignant neoplasm of upper-outer quadrant of right female breast (principal); C79.51 Secondary malignant neoplasm of bone; K76.89 Other specified diseases of liver
CPT/HCPCS: Q9967

== ENCOUNTER → 2018-10-03 | Outpatient (CLI) | payer BC ==
[2018-10-03 08:44] LABS: EOS # 0.3 (0.04-0.40); HEMATOCRIT 44.8 % (37.0-47.0); HEMOGLOBIN 14.8 g/dL (12.5-16.0); LYMPH# 2.6 (1.50-4.00); MEAN CELL VOLUME 96 fl (78-100); MEAN CORPUSCULAR HEMOGLOBIN 32 pg (27-31); MEAN CORPUSCULAR HGB CONC 33 g/dL (33-37); MEAN PLATELET VOLUME 9.9 fl (7.4-10.4); MONO # 0.8 (0.20-0.80); NEU # 3.1 (1.40-6.50); PLATELET COUNT 249 K/mm3 (130-400); RED BLOOD COUNT 4.69 M/mm3 (4.10-5.30); RED CELL DISTRIBUTION WIDTH 13.7 % (11.5-14.5); WHITE BLOOD COUNT 6.8 K/mm3 (4.8-10.8)
[2018-10-03 08:54] LABS: ALBUMIN 4.2 g/dL (3.5-5.0)
[2018-10-03 08:55] LABS: POTASSIUM 3.3 mmol/L (3.5-5.1)
[2018-10-03 08:56] LABS: CALCIUM 9.8 mg/dL (8.3-10.5)
[2018-10-03 08:57] LABS: TOTAL PROTEIN 8.2 g/dL (6.4-8.3)
[2018-10-03 08:59] LABS: TOTAL BILIRUBIN 0.3 mg/dL (0.2-1.2)
== END ==
LOC: LAB 08:27
PROVIDERS: Internal Medicine
DX: C50.411 Malignant neoplasm of upper-outer quadrant of right female breast (principal)

== ENCOUNTER → 2018-10-24 | Outpatient (CLI) | payer BC ==
[2018-10-24 08:49] LABS: ALBUMIN 4.1 g/dL (3.5-5.0)
[2018-10-24 08:50] LABS: POTASSIUM 3.5 mmol/L (3.5-5.1)
[2018-10-24 08:51] LABS: CALCIUM 9.7 mg/dL (8.3-10.5)
[2018-10-24 08:52] LABS: TOTAL PROTEIN 7.4 g/dL (6.4-8.3)
[2018-10-24 08:54] LABS: TOTAL BILIRUBIN 0.3 mg/dL (0.2-1.2)
[2018-10-24 08:56] LABS: EOS # 0.3 (0.04-0.40); EOS % 3.1 % (1.0-5.0); HEMOGLOBIN 14.5 g/dL (12.5-16.0); LYMPH# 3.2 (1.50-4.00); MEAN CELL VOLUME 95 fl (78-100); MEAN CORPUSCULAR HEMOGLOBIN 31 pg (27-31); MEAN CORPUSCULAR HGB CONC 33 g/dL (33-37); MEAN PLATELET VOLUME 9.9 fl (7.4-10.4); PLATELET COUNT 272 K/mm3 (130-400); RED BLOOD COUNT 4.63 M/mm3 (4.10-5.30); RED CELL DISTRIBUTION WIDTH 13.7 % (11.5-14.5); WHITE BLOOD COUNT 8.5 K/mm3 (4.8-10.8)
== END ==
LOC: LAB 08:27
PROVIDERS: Internal Medicine
DX: C50.411 Malignant neoplasm of upper-outer quadrant of right female breast (principal)

== ENCOUNTER → 2018-11-06 | Outpatient (CLI) | payer BC ==
[~2018-11-06] VITALS: Ht 167.6 cm; Wt 60.9 kg
[2018-11-06 09:15] VITALS: BP 124/83
== END ==
LOC: RAD 08:54 → AMSURD 08:54 → RAD 09:00
DX: C50.411 Malignant neoplasm of upper-outer quadrant of right female breast (principal); M89.9 Disorder of bone, unspecified; K80.80 Other cholelithiasis without obstruction
CPT/HCPCS: Q9967

== ENCOUNTER → 2018-11-15 | Outpatient (CLI) | payer BC ==
[2018-11-06 09:15] VITALS: BP 124/83
[2018-11-15 09:00] LABS: ALBUMIN 4.4 g/dL (3.5-5.0); POTASSIUM 3.3 mmol/L (3.5-5.1)
[2018-11-15 09:01] LABS: CALCIUM 10.1 mg/dL (8.3-10.5)
[2018-11-15 09:02] LABS: EOS # 0.3 (0.04-0.40); EOS % 2.9 % (1.0-5.0); HEMATOCRIT 43.4 % (37.0-47.0); HEMOGLOBIN 14.5 g/dL (12.5-16.0); LYMPH# 2.8 (1.50-4.00); MEAN CELL VOLUME 95 fl (78-100); MEAN CORPUSCULAR HEMOGLOBIN 32 pg (27-31); MEAN CORPUSCULAR HGB CONC 33 g/dL (33-37); MEAN PLATELET VOLUME 9.9 fl (7.4-10.4); NEU # 4.8 (1.40-6.50); PLATELET COUNT 280 K/mm3 (130-400); RED BLOOD COUNT 4.57 M/mm3 (4.10-5.30); RED CELL DISTRIBUTION WIDTH 13.7 % (11.5-14.5); WHITE BLOOD COUNT 8.9 K/mm3 (4.8-10.8)
[2018-11-15 09:03] LABS: TOTAL PROTEIN 7.6 g/dL (6.4-8.3)
[2018-11-15 09:04] LABS: TOTAL BILIRUBIN 0.3 mg/dL (0.2-1.2)
== END ==
LOC: LAB 08:29
PROVIDERS: Internal Medicine
DX: C50.411 Malignant neoplasm of upper-outer quadrant of right female breast (principal)

== ENCOUNTER → 2018-12-05 | Outpatient (CLI) | payer BC ==
[2018-11-06 09:15] VITALS: BP 124/83
[2018-12-05 08:37] LABS: EOS # 0.2 (0.04-0.40); EOS % 2.6 % (1.0-5.0); HEMATOCRIT 47.1 % (37.0-47.0); HEMOGLOBIN 15.4 g/dL (12.5-16.0); LYMPH# 2.9 (1.50-4.00); MEAN CELL VOLUME 95 fl (78-100); MEAN CORPUSCULAR HEMOGLOBIN 31 pg (27-31); MEAN CORPUSCULAR HGB CONC 33 g/dL (33-37); MEAN PLATELET VOLUME 9.4 fl (7.4-10.4); MONO # 0.7 (0.20-0.80); NEU # 3.4 (1.40-6.50); PLATELET COUNT 310 K/mm3 (130-400); RED BLOOD COUNT 4.94 M/mm3 (4.10-5.30); RED CELL DISTRIBUTION WIDTH 13.7 % (11.5-14.5); WHITE BLOOD COUNT 7.3 K/mm3 (4.8-10.8)
[2018-12-05 08:46] LABS: ALBUMIN 4.2 g/dL (3.5-5.0); POTASSIUM 3.7 mmol/L (3.5-5.1)
[2018-12-05 08:48] LABS: CALCIUM 9.6 mg/dL (8.3-10.5)
[2018-12-05 08:49] LABS: TOTAL PROTEIN 7.9 g/dL (6.4-8.3)
[2018-12-05 08:51] LABS: TOTAL BILIRUBIN 0.4 mg/dL (0.2-1.2)
== END ==
LOC: LAB 08:22
PROVIDERS: Internal Medicine
DX: C50.411 Malignant neoplasm of upper-outer quadrant of right female breast (principal)

== ENCOUNTER → 2018-12-20 | Outpatient (CLI) | payer BC ==
[2018-11-06 09:15] VITALS: BP 124/83
== END ==
LOC: VAS 15:42 → RAD 16:00
DX: Z51.11 Encounter for antineoplastic chemotherapy (principal); C50.411 Malignant neoplasm of upper-outer quadrant of right female breast; I08.1 Rheumatic disorders of both mitral and tricuspid valves

== ENCOUNTER → 2018-12-25 | Outpatient (CLI) | payer BC ==
[2018-11-06 09:15] VITALS: BP 124/83
[2018-12-25 08:54] LABS: ALBUMIN 4.4 g/dL (3.5-5.0); POTASSIUM 3.3 mmol/L (3.5-5.1)
[2018-12-25 08:55] LABS: CALCIUM 9.7 mg/dL (8.3-10.5)
[2018-12-25 08:56] LABS: TOTAL PROTEIN 7.8 g/dL (6.4-8.3)
[2018-12-25 08:58] LABS: TOTAL BILIRUBIN 0.3 mg/dL (0.2-1.2)
[2018-12-25 09:00] LABS: EOS # 0.2 (0.04-0.40); EOS % 3.1 % (1.0-5.0); HEMATOCRIT 44.6 % (37.0-47.0); HEMOGLOBIN 14.8 g/dL (12.5-16.0); LYMPH# 2.7 (1.50-4.00); MEAN CELL VOLUME 96 fl (78-100); MEAN CORPUSCULAR HEMOGLOBIN 32 pg (27-31); MEAN CORPUSCULAR HGB CONC 33 g/dL (33-37); MEAN PLATELET VOLUME 9.9 fl (7.4-10.4); MONO # 0.9 (0.20-0.80); NEU # 3.7 (1.40-6.50); PLATELET COUNT 302 K/mm3 (130-400); RED BLOOD COUNT 4.64 M/mm3 (4.10-5.30); RED CELL DISTRIBUTION WIDTH 14.1 % (11.5-14.5); WHITE BLOOD COUNT 7.5 K/mm3 (4.8-10.8)
== END ==
LOC: LAB 08:33
PROVIDERS: Internal Medicine
DX: C50.411 Malignant neoplasm of upper-outer quadrant of right female breast (principal)

== ENCOUNTER → 2019-01-15 | Outpatient (CLI) | payer BC ==
[2018-11-06 09:15] VITALS: BP 124/83
[2019-01-15 08:59] LABS: EOS # 0.1 (0.04-0.40); EOS % 1.5 % (1.0-5.0); HEMATOCRIT 44.1 % (37.0-47.0); HEMOGLOBIN 14.2 g/dL (12.5-16.0); LYMPH# 2.2 (1.50-4.00); MEAN CELL VOLUME 96 fl (78-100); MEAN CORPUSCULAR HEMOGLOBIN 31 pg (27-31); MEAN CORPUSCULAR HGB CONC 32 g/dL (33-37); MONO # 0.7 (0.20-0.80); PLATELET COUNT 277 K/mm3 (130-400); RED BLOOD COUNT 4.58 M/mm3 (4.10-5.30); RED CELL DISTRIBUTION WIDTH 14.2 % (11.5-14.5); WHITE BLOOD COUNT 7.1 K/mm3 (4.8-10.8)
[2019-01-15 09:07] LABS: ALBUMIN 4.2 g/dL (3.5-5.0); POTASSIUM 3.6 mmol/L (3.5-5.1)
[2019-01-15 09:09] LABS: TOTAL PROTEIN 7.5 g/dL (6.4-8.3)
[2019-01-15 09:11] LABS: TOTAL BILIRUBIN 0.3 mg/dL (0.2-1.2)
== END ==
LOC: LAB 08:21
PROVIDERS: Internal Medicine
DX: C50.411 Malignant neoplasm of upper-outer quadrant of right female breast (principal)

== ENCOUNTER → 2019-02-01 | Outpatient (CLI) | payer BC ==
[2018-11-06 09:15] VITALS: BP 124/83
== END ==
LOC: RAD 08:41
DX: C50.411 Malignant neoplasm of upper-outer quadrant of right female breast (principal); C79.51 Secondary malignant neoplasm of bone; K80.20 Calculus of gallbladder without cholecystitis without obstruction; K76.9 Liver disease, unspecified; Z90.13 Acquired absence of bilateral breasts and nipples
CPT/HCPCS: Q9967

== ENCOUNTER → 2019-02-05 | Outpatient (CLI) | payer BC ==
[2018-11-06 09:15] VITALS: BP 124/83
[2019-02-05 09:28] LABS: EOS # 0.2 (0.04-0.40); EOS % 2.8 % (1.0-5.0); HEMATOCRIT 44.2 % (37.0-47.0); HEMOGLOBIN 14.5 g/dL (12.5-16.0); LYMPH# 2.9 (1.50-4.00); MEAN CELL VOLUME 96 fl (78-100); MEAN CORPUSCULAR HEMOGLOBIN 32 pg (27-31); MEAN CORPUSCULAR HGB CONC 33 g/dL (33-37); MEAN PLATELET VOLUME 9.9 fl (7.4-10.4); MONO # 0.7 (0.20-0.80); NEU # 2.9 (1.40-6.50); PLATELET COUNT 267 K/mm3 (130-400); RED BLOOD COUNT 4.61 M/mm3 (4.10-5.30); WHITE BLOOD COUNT 6.8 K/mm3 (4.8-10.8)
[2019-02-05 09:39] LABS: ALBUMIN 4.2 g/dL (3.5-5.0); POTASSIUM 3.8 mmol/L (3.5-5.1)
[2019-02-05 09:41] LABS: CALCIUM 9.6 mg/dL (8.3-10.5)
[2019-02-05 09:42] LABS: TOTAL PROTEIN 7.5 g/dL (6.4-8.3)
[2019-02-05 09:44] LABS: TOTAL BILIRUBIN 0.4 mg/dL (0.2-1.2)
== END ==
LOC: LAB 09:16
PROVIDERS: Internal Medicine
DX: C50.411 Malignant neoplasm of upper-outer quadrant of right female breast (principal)

== ENCOUNTER → 2019-02-27 | Outpatient (CLI) | payer BC ==
[2018-11-06 09:15] VITALS: BP 124/83
[2019-02-27 08:42] LABS: HEMATOCRIT 46.3 % (37.0-47.0); HEMOGLOBIN 15.4 g/dL (12.5-16.0); MEAN CELL VOLUME 94 fl (78-100); MEAN CORPUSCULAR HEMOGLOBIN 31 pg (27-31); MEAN CORPUSCULAR HGB CONC 33 g/dL (33-37); MEAN PLATELET VOLUME 9.8 fl (7.4-10.4); PLATELET COUNT 245 K/mm3 (130-400); RED BLOOD COUNT 4.91 M/mm3 (4.10-5.30); RED CELL DISTRIBUTION WIDTH 14.3 % (11.5-14.5); WHITE BLOOD COUNT 5.1 K/mm3 (4.8-10.8)
[2019-02-27 08:52] LABS: ALBUMIN 4.2 g/dL (3.5-5.0); POTASSIUM 3.1 mmol/L (3.5-5.1)
[2019-02-27 08:53] LABS: CALCIUM 9.3 mg/dL (8.3-10.5)
[2019-02-27 08:55] LABS: TOTAL PROTEIN 7.8 g/dL (6.4-8.3)
[2019-02-27 08:56] LABS: TOTAL BILIRUBIN 0.2 mg/dL (0.2-1.2)
[2019-02-27 09:13] LABS: LYMPHOCYTE 45 % (20-51); MONOCYTE 14 % (3-10); NEUTROPHILS 40 % (42-75)
== END ==
LOC: LAB 08:31
PROVIDERS: Internal Medicine
DX: C50.411 Malignant neoplasm of upper-outer quadrant of right female breast (principal)

== ENCOUNTER → 2019-03-18 | Outpatient (CLI) | payer BC ==
[2018-11-06 09:15] VITALS: BP 124/83
== END ==
LOC: VAS 16:35
DX: C50.411 Malignant neoplasm of upper-outer quadrant of right female breast (principal); Z79.899 Other long term (current) drug therapy

== ENCOUNTER → 2019-03-19 | Outpatient (CLI) | payer BC ==
[2018-11-06 09:15] VITALS: BP 124/83
[2019-03-19 09:24] LABS: EOS # 0.2 (0.04-0.40); EOS % 2.2 % (1.0-5.0); HEMATOCRIT 44.2 % (37.0-47.0); HEMOGLOBIN 14.6 g/dL (12.5-16.0); LYMPH# 2.6 (1.50-4.00); MEAN CELL VOLUME 96 fl (78-100); MEAN CORPUSCULAR HEMOGLOBIN 32 pg (27-31); MEAN CORPUSCULAR HGB CONC 33 g/dL (33-37); MEAN PLATELET VOLUME 9.9 fl (7.4-10.4); NEU # 4.8 (1.40-6.50); PLATELET COUNT 312 K/mm3 (130-400); RED BLOOD COUNT 4.59 M/mm3 (4.10-5.30); RED CELL DISTRIBUTION WIDTH 14.4 % (11.5-14.5); WHITE BLOOD COUNT 8.7 K/mm3 (4.8-10.8)
[2019-03-19 09:40] LABS: ALBUMIN 4.5 g/dL (3.5-5.0); POTASSIUM 3.5 mmol/L (3.5-5.1)
[2019-03-19 09:41] LABS: CALCIUM 9.1 mg/dL (8.3-10.5)
[2019-03-19 09:44] LABS: TOTAL BILIRUBIN 0.2 mg/dL (0.2-1.2)
== END ==
LOC: LAB 08:50
PROVIDERS: Internal Medicine
DX: C50.411 Malignant neoplasm of upper-outer quadrant of right female breast (principal)

== ENCOUNTER → 2019-04-08 | Outpatient (CLI) | payer BC ==
[2018-11-06 09:15] VITALS: BP 124/83
[2019-04-08 07:44] LABS: ALBUMIN 4.1 g/dL (3.5-5.0); EOS # 0.2 (0.04-0.40); EOS % 2.5 % (1.0-5.0); HEMATOCRIT 43.8 % (37.0-47.0); HEMOGLOBIN 14.7 g/dL (12.5-16.0); LYMPH# 3.2 (1.50-4.00); MEAN CELL VOLUME 95 fl (78-100); MEAN CORPUSCULAR HEMOGLOBIN 32 pg (27-31); MEAN CORPUSCULAR HGB CONC 34 g/dL (33-37); MEAN PLATELET VOLUME 9.4 fl (7.4-10.4); MONO # 0.9 (0.20-0.80); NEU # 3.9 (1.40-6.50); PLATELET COUNT 326 K/mm3 (130-400); POTASSIUM 3.4 mmol/L (3.5-5.1); RED BLOOD COUNT 4.59 M/mm3 (4.10-5.30); RED CELL DISTRIBUTION WIDTH 14.4 % (11.5-14.5); WHITE BLOOD COUNT 8.3 K/mm3 (4.8-10.8)
[2019-04-08 07:46] LABS: CALCIUM 9.9 mg/dL (8.3-10.5)
[2019-04-08 07:47] LABS: TOTAL PROTEIN 7.4 g/dL (6.4-8.3)
[2019-04-08 07:49] LABS: TOTAL BILIRUBIN 0.3 mg/dL (0.2-1.2)
== END ==
LOC: LAB 07:17
PROVIDERS: Internal Medicine
DX: C50.411 Malignant neoplasm of upper-outer quadrant of right female breast (principal)

== ENCOUNTER → 2019-04-08 | Day surgery (SDC) | payer BC ==
[2018-11-06 09:15] VITALS: BP 124/83
== END ==
LOC: MSO 00:57
DX: K29.00 Acute gastritis without bleeding (principal); K29.30 Chronic superficial gastritis without bleeding; K21.9 Gastro-esophageal reflux disease without esophagitis; Z85.3 Personal history of malignant neoplasm of breast; Z88.0 Allergy status to penicillin; Z90.13 Acquired absence of bilateral breasts and nipples; Z92.21 Personal history of antineoplastic chemotherapy; Z87.891 Personal history of nicotine dependence; Z92.3 Personal history of irradiation; Z87.442 Personal history of urinary calculi
CPT/HCPCS: 00731; J2704; J7120

== ENCOUNTER → 2019-04-26 | Outpatient (CLI) | payer BC ==
[2018-11-06 09:15] VITALS: BP 124/83
== END ==
LOC: RAD 08:20
DX: C50.411 Malignant neoplasm of upper-outer quadrant of right female breast (principal); C79.9 Secondary malignant neoplasm of unspecified site; Z98.890 Other specified postprocedural states
CPT/HCPCS: Q9967

== ENCOUNTER → 2019-04-30 | Outpatient (CLI) | payer BC ==
[2018-11-06 09:15] VITALS: BP 124/83
[2019-04-30 09:28] LABS: ALBUMIN 4.1 g/dL (3.5-5.0)
[2019-04-30 09:30] LABS: CALCIUM 9.5 mg/dL (8.3-10.5)
[2019-04-30 09:31] LABS: TOTAL PROTEIN 7.4 g/dL (6.4-8.3)
[2019-04-30 09:33] LABS: TOTAL BILIRUBIN 0.2 mg/dL (0.2-1.2)
[2019-04-30 09:34] LABS: EOS # 0.1 (0.04-0.40); EOS % 1.8 % (1.0-5.0); HEMATOCRIT 43.6 % (37.0-47.0); HEMOGLOBIN 14.5 g/dL (12.5-16.0); LYMPH# 2.9 (1.50-4.00); MEAN CELL VOLUME 96 fl (78-100); MEAN CORPUSCULAR HEMOGLOBIN 32 pg (27-31); MEAN CORPUSCULAR HGB CONC 33 g/dL (33-37); MEAN PLATELET VOLUME 9.9 fl (7.4-10.4); MONO # 0.8 (0.20-0.80); NEU # 3.7 (1.40-6.50); PLATELET COUNT 291 K/mm3 (130-400); RED BLOOD COUNT 4.56 M/mm3 (4.10-5.30); RED CELL DISTRIBUTION WIDTH 14.5 % (11.5-14.5); WHITE BLOOD COUNT 7.6 K/mm3 (4.8-10.8)
[2019-04-30 09:45] LABS: POTASSIUM 2.7 mmol/L (3.5-5.1)
== END ==
LOC: LAB 09:01
PROVIDERS: Internal Medicine
DX: C50.411 Malignant neoplasm of upper-outer quadrant of right female breast (principal)

== ENCOUNTER → 2019-06-10 | Outpatient (CLI) | payer BC ==
[2018-11-06 09:15] VITALS: BP 124/83
== END ==
LOC: RAD 15:37
DX: Z51.11 Encounter for antineoplastic chemotherapy (principal); C50.411 Malignant neoplasm of upper-outer quadrant of right female breast; I07.1 Rheumatic tricuspid insufficiency

== ENCOUNTER → 2019-06-11 | Outpatient (CLI) | payer BC ==
[2018-11-06 09:15] VITALS: BP 124/83
[2019-06-11 11:24] LABS: ALBUMIN 4.2 g/dL (3.5-5.0); POTASSIUM 3.7 mmol/L (3.5-5.1)
[2019-06-11 11:25] LABS: CALCIUM 9.5 mg/dL (8.3-10.5)
[2019-06-11 11:26] LABS: TOTAL PROTEIN 7.4 g/dL (6.4-8.3)
[2019-06-11 11:28] LABS: TOTAL BILIRUBIN 0.3 mg/dL (0.2-1.2)
[2019-06-11 11:37] LABS: EOS # 0.2 (0.04-0.40); EOS % 3.3 % (1.0-5.0); HEMATOCRIT 44.5 % (37.0-47.0); HEMOGLOBIN 14.5 g/dL (12.5-16.0); LYMPH# 3.3 (1.50-4.00); MEAN CELL VOLUME 98 fl (78-100); MEAN CORPUSCULAR HEMOGLOBIN 32 pg (27-31); MEAN CORPUSCULAR HGB CONC 33 g/dL (33-37); MEAN PLATELET VOLUME 9.8 fl (7.4-10.4); MONO # 0.8 (0.20-0.80); NEU # 2.6 (1.40-6.50); PLATELET COUNT 288 K/mm3 (130-400); RED BLOOD COUNT 4.55 M/mm3 (4.10-5.30); RED CELL DISTRIBUTION WIDTH 13.7 % (11.5-14.5)
== END ==
LOC: LAB 10:59
PROVIDERS: Internal Medicine
DX: C50.411 Malignant neoplasm of upper-outer quadrant of right female breast (principal)

== ENCOUNTER → 2019-07-03 | Outpatient (CLI) | payer BC ==
[2018-11-06 09:15] VITALS: BP 124/83
[2019-07-03 10:58] LABS: EOS # 0.2 (0.04-0.40); HEMATOCRIT 45.3 % (37.0-47.0); LYMPH# 2.7 (1.50-4.00); MEAN CELL VOLUME 97 fl (78-100); MEAN CORPUSCULAR HEMOGLOBIN 32 pg (27-31); MEAN CORPUSCULAR HGB CONC 33 g/dL (33-37); MONO # 0.9 (0.20-0.80); NEU # 3.7 (1.40-6.50); PLATELET COUNT 313 K/mm3 (130-400); RED BLOOD COUNT 4.68 M/mm3 (4.10-5.30); RED CELL DISTRIBUTION WIDTH 13.5 % (11.5-14.5); WHITE BLOOD COUNT 7.5 K/mm3 (4.8-10.8)
[2019-07-03 11:01] LABS: ALBUMIN 4.2 g/dL (3.5-5.0); POTASSIUM 3.6 mmol/L (3.5-5.1)
[2019-07-03 11:03] LABS: CALCIUM 10.2 mg/dL (8.3-10.5)
[2019-07-03 11:04] LABS: TOTAL PROTEIN 7.7 g/dL (6.4-8.3)
[2019-07-03 11:06] LABS: TOTAL BILIRUBIN 0.3 mg/dL (0.2-1.2)
== END ==
LOC: LAB 10:24
PROVIDERS: Internal Medicine
DX: C50.411 Malignant neoplasm of upper-outer quadrant of right female breast (principal)

== ENCOUNTER → 2019-07-22 | Outpatient (CLI) | payer BC ==
[~2019-07-22] VITALS: Ht 167.6 cm; Wt 60.9 kg
[2019-07-22 08:36] VITALS: BP 125/68
== END ==
LOC: RAD 07:55 → AMSURD 07:55 → RAD 08:00
DX: C50.411 Malignant neoplasm of upper-outer quadrant of right female breast (principal); C79.51 Secondary malignant neoplasm of bone
CPT/HCPCS: J1644; Q9967

== ENCOUNTER → 2019-07-24 | Outpatient (CLI) | payer BC ==
[2019-07-22 08:36] VITALS: BP 125/68
[2019-07-24 10:58] LABS: EOS # 0.2 (0.04-0.40); EOS % 2.3 % (1.0-5.0); HEMATOCRIT 46.1 % (37.0-47.0); HEMOGLOBIN 15.1 g/dL (12.5-16.0); MEAN CELL VOLUME 97 fl (78-100); MEAN CORPUSCULAR HEMOGLOBIN 32 pg (27-31); MEAN CORPUSCULAR HGB CONC 33 g/dL (33-37); MEAN PLATELET VOLUME 9.7 fl (7.4-10.4); MONO # 0.7 (0.20-0.80); NEU # 3.6 (1.40-6.50); PLATELET COUNT 281 K/mm3 (130-400); RED BLOOD COUNT 4.74 M/mm3 (4.10-5.30); RED CELL DISTRIBUTION WIDTH 13.7 % (11.5-14.5); WHITE BLOOD COUNT 7.5 K/mm3 (4.8-10.8)
[2019-07-24 11:13] LABS: ALBUMIN 4.2 g/dL (3.5-5.0); POTASSIUM 4.2 mmol/L (3.5-5.1)
[2019-07-24 11:15] LABS: CALCIUM 9.9 mg/dL (8.3-10.5)
[2019-07-24 11:18] LABS: TOTAL BILIRUBIN 0.4 mg/dL (0.2-1.2)
== END ==
LOC: LAB 10:47
PROVIDERS: Internal Medicine
DX: C50.411 Malignant neoplasm of upper-outer quadrant of right female breast (principal)

== ENCOUNTER → 2019-08-15 | Outpatient (CLI) | payer BC ==
[2019-07-22 08:36] VITALS: BP 125/68
[2019-08-15 10:42] LABS: EOS # 0.2 (0.04-0.40); EOS % 2.2 % (1.0-5.0); HEMATOCRIT 43.5 % (37.0-47.0); LYMPH# 2.6 (1.50-4.00); MEAN CELL VOLUME 95 fl (78-100); MEAN CORPUSCULAR HEMOGLOBIN 33 pg (27-31); MEAN CORPUSCULAR HGB CONC 35 g/dL (33-37); MEAN PLATELET VOLUME 9.6 fl (7.4-10.4); MONO # 0.8 (0.20-0.80); NEU # 3.6 (1.40-6.50); PLATELET COUNT 321 K/mm3 (130-400); RED BLOOD COUNT 4.58 M/mm3 (4.10-5.30); RED CELL DISTRIBUTION WIDTH 13.6 % (11.5-14.5); WHITE BLOOD COUNT 7.2 K/mm3 (4.8-10.8)
[2019-08-15 10:48] LABS: ALBUMIN 4.4 g/dL (3.5-5.0); POTASSIUM 4.4 mmol/L (3.5-5.1)
[2019-08-15 10:50] LABS: TOTAL PROTEIN 7.6 g/dL (6.4-8.3)
[2019-08-15 10:52] LABS: TOTAL BILIRUBIN 0.3 mg/dL (0.2-1.2)
== END ==
LOC: LAB 10:20
PROVIDERS: Internal Medicine
DX: C50.411 Malignant neoplasm of upper-outer quadrant of right female breast (principal)

== ENCOUNTER → 2019-09-02 | Outpatient (CLI) | payer BC ==
[2019-07-22 08:36] VITALS: BP 125/68
== END ==
LOC: RAD 15:45
DX: Z51.11 Encounter for antineoplastic chemotherapy (principal); C50.411 Malignant neoplasm of upper-outer quadrant of right female breast

== ENCOUNTER → 2019-09-05 | Outpatient (CLI) | payer BC ==
[2019-07-22 08:36] VITALS: BP 125/68
[2019-09-05 11:12] LABS: EOS # 0.2 (0.04-0.40); EOS % 2.4 % (1.0-5.0); HEMATOCRIT 43.2 % (37.0-47.0); HEMOGLOBIN 14.1 g/dL (12.5-16.0); LYMPH# 2.5 (1.50-4.00); MEAN CELL VOLUME 97 fl (78-100); MEAN CORPUSCULAR HEMOGLOBIN 32 pg (27-31); MEAN CORPUSCULAR HGB CONC 33 g/dL (33-37); MEAN PLATELET VOLUME 9.7 fl (7.4-10.4); MONO # 0.7 (0.20-0.80); NEU # 3.2 (1.40-6.50); PLATELET COUNT 280 K/mm3 (130-400); RED BLOOD COUNT 4.46 M/mm3 (4.10-5.30); RED CELL DISTRIBUTION WIDTH 13.3 % (11.5-14.5); WHITE BLOOD COUNT 6.7 K/mm3 (4.8-10.8)
[2019-09-05 11:19] LABS: ALBUMIN 4.4 g/dL (3.5-5.0); POTASSIUM 3.4 mmol/L (3.5-5.1)
[2019-09-05 11:20] LABS: CALCIUM 9.5 mg/dL (8.3-10.5)
[2019-09-05 11:22] LABS: TOTAL PROTEIN 7.8 g/dL (6.4-8.3)
[2019-09-05 11:23] LABS: TOTAL BILIRUBIN 0.3 mg/dL (0.2-1.2)
== END ==
LOC: LAB 10:56
PROVIDERS: Internal Medicine
DX: C50.411 Malignant neoplasm of upper-outer quadrant of right female breast (principal)

== ENCOUNTER → 2019-10-15 | Outpatient (CLI) | payer BC ==
[2019-07-22 08:36] VITALS: BP 125/68
[~2019-10-15] VITALS: Ht 167.6 cm; Wt 60.9 kg
== END ==
LOC: RAD 07:59 → AMSURD 07:59 → RAD 08:15
DX: C50.411 Malignant neoplasm of upper-outer quadrant of right female breast (principal); C79.51 Secondary malignant neoplasm of bone
CPT/HCPCS: Q9967

== ENCOUNTER → 2019-11-07 | Outpatient (CLI) | payer BC ==
[2019-07-22 08:36] VITALS: BP 125/68
[2019-11-07 10:41] LABS: EOS # 0.1 (0.04-0.40); EOS % 1.7 % (1.0-5.0); HEMATOCRIT 43.1 % (37.0-47.0); HEMOGLOBIN 14.2 g/dL (12.5-16.0); LYMPH# 2.5 (1.50-4.00); MEAN CELL VOLUME 97 fl (78-100); MEAN CORPUSCULAR HEMOGLOBIN 32 pg (27-31); MEAN CORPUSCULAR HGB CONC 33 g/dL (33-37); MEAN PLATELET VOLUME 9.4 fl (7.4-10.4); MONO # 0.9 (0.20-0.80); NEU # 4.2 (1.40-6.50); PLATELET COUNT 284 K/mm3 (130-400); RED BLOOD COUNT 4.44 M/mm3 (4.10-5.30); WHITE BLOOD COUNT 7.8 K/mm3 (4.8-10.8)
[2019-11-07 10:53] LABS: ALBUMIN 4.2 g/dL (3.5-5.0)
[2019-11-07 10:54] LABS: POTASSIUM 3.6 mmol/L (3.5-5.1)
[2019-11-07 10:55] LABS: CALCIUM 9.4 mg/dL (8.3-10.5)
[2019-11-07 10:56] LABS: TOTAL PROTEIN 7.3 g/dL (6.4-8.3)
[2019-11-07 10:58] LABS: TOTAL BILIRUBIN 0.2 mg/dL (0.2-1.2)
== END ==
LOC: LAB 10:30
PROVIDERS: Internal Medicine
DX: C50.411 Malignant neoplasm of upper-outer quadrant of right female breast (principal)

== ENCOUNTER → 2019-11-21 | Outpatient (CLI) | payer BC ==
[2019-07-22 08:36] VITALS: BP 125/68
== END ==
LOC: VAS 15:32 → RAD 15:45
DX: Z51.11 Encounter for antineoplastic chemotherapy (principal); I08.1 Rheumatic disorders of both mitral and tricuspid valves; C50.411 Malignant neoplasm of upper-outer quadrant of right female breast

== ENCOUNTER → 2019-11-27 | Outpatient (CLI) | payer BC ==
[2019-07-22 08:36] VITALS: BP 125/68
[2019-11-27 11:56] LABS: EOS # 0.1 (0.04-0.40); EOS % 1.3 % (1.0-5.0); HEMATOCRIT 44.8 % (37.0-47.0); HEMOGLOBIN 14.6 g/dL (12.5-16.0); MEAN CELL VOLUME 97 fl (78-100); MEAN CORPUSCULAR HEMOGLOBIN 32 pg (27-31); MEAN CORPUSCULAR HGB CONC 33 g/dL (33-37); MEAN PLATELET VOLUME 9.7 fl (7.4-10.4); MONO # 0.9 (0.20-0.80); PLATELET COUNT 272 K/mm3 (130-400); RED BLOOD COUNT 4.61 M/mm3 (4.10-5.30); RED CELL DISTRIBUTION WIDTH 13.2 % (11.5-14.5)
[2019-11-27 12:10] LABS: ALBUMIN 4.5 g/dL (3.5-5.0); POTASSIUM 4.2 mmol/L (3.5-5.1)
[2019-11-27 12:11] LABS: CALCIUM 9.7 mg/dL (8.3-10.5)
[2019-11-27 12:12] LABS: TOTAL PROTEIN 7.7 g/dL (6.4-8.3)
[2019-11-27 12:14] LABS: TOTAL BILIRUBIN 0.3 mg/dL (0.2-1.2)
== END ==
LOC: LAB 11:44
PROVIDERS: Internal Medicine
DX: C50.411 Malignant neoplasm of upper-outer quadrant of right female breast (principal)

== ENCOUNTER → 2019-12-19 | Outpatient (CLI) | payer BC ==
[2019-07-22 08:36] VITALS: BP 125/68
[2019-12-19 09:54] LABS: EOS # 0.2 (0.04-0.40); EOS % 2.6 % (1.0-5.0); HEMATOCRIT 45.2 % (37.0-47.0); HEMOGLOBIN 14.8 g/dL (12.5-16.0); LYMPH# 2.9 (1.50-4.00); MEAN CELL VOLUME 97 fl (78-100); MEAN CORPUSCULAR HEMOGLOBIN 32 pg (27-31); MEAN CORPUSCULAR HGB CONC 33 g/dL (33-37); MEAN PLATELET VOLUME 9.7 fl (7.4-10.4); MONO # 0.7 (0.20-0.80); NEU # 4.3 (1.40-6.50); PLATELET COUNT 312 K/mm3 (130-400); RED BLOOD COUNT 4.66 M/mm3 (4.10-5.30); RED CELL DISTRIBUTION WIDTH 13.2 % (11.5-14.5); WHITE BLOOD COUNT 8.2 K/mm3 (4.8-10.8)
[2019-12-19 09:55] LABS: ALBUMIN 4.3 g/dL (3.5-5.0)
[2019-12-19 09:56] LABS: POTASSIUM 3.5 mmol/L (3.5-5.1)
[2019-12-19 09:57] LABS: CALCIUM 9.8 mg/dL (8.3-10.5)
[2019-12-19 09:58] LABS: TOTAL PROTEIN 8.1 g/dL (6.4-8.3)
[2019-12-19 10:00] LABS: TOTAL BILIRUBIN 0.4 mg/dL (0.2-1.2)
== END ==
LOC: LAB 09:31
PROVIDERS: Internal Medicine
DX: C50.411 Malignant neoplasm of upper-outer quadrant of right female breast (principal)

== ENCOUNTER → 2020-01-06 | Outpatient (CLI) | payer BC ==
[2019-07-22 08:36] VITALS: BP 125/68
== END ==
LOC: RAD 07:57
DX: C50.411 Malignant neoplasm of upper-outer quadrant of right female breast (principal); C79.51 Secondary malignant neoplasm of bone; Z95.828 Presence of other vascular implants and grafts
CPT/HCPCS: J1644; Q9967

== ENCOUNTER → 2020-01-08 | Outpatient (CLI) | payer BC ==
[2019-07-22 08:36] VITALS: BP 125/68
[2020-01-08 11:13] LABS: EOS # 0.1 (0.04-0.40); EOS % 1.1 % (1.0-5.0); HEMATOCRIT 43.9 % (37.0-47.0); HEMOGLOBIN 14.6 g/dL (12.5-16.0); LYMPH# 2.7 (1.50-4.00); MEAN CELL VOLUME 96 fl (78-100); MEAN CORPUSCULAR HEMOGLOBIN 32 pg (27-31); MEAN CORPUSCULAR HGB CONC 33 g/dL (33-37); MEAN PLATELET VOLUME 9.7 fl (7.4-10.4); MONO # 0.8 (0.20-0.80); NEU # 4.8 (1.40-6.50); PLATELET COUNT 269 K/mm3 (130-400); RED BLOOD COUNT 4.58 M/mm3 (4.10-5.30); WHITE BLOOD COUNT 8.5 K/mm3 (4.8-10.8)
[2020-01-08 11:33] LABS: ALBUMIN 4.3 g/dL (3.5-5.0); POTASSIUM 3.8 mmol/L (3.5-5.1)
[2020-01-08 11:34] LABS: CALCIUM 9.9 mg/dL (8.3-10.5)
[2020-01-08 11:35] LABS: TOTAL PROTEIN 7.6 g/dL (6.4-8.3)
[2020-01-08 11:37] LABS: TOTAL BILIRUBIN 0.3 mg/dL (0.2-1.2)
== END ==
LOC: LAB 10:43
PROVIDERS: Internal Medicine
DX: C50.919 Malignant neoplasm of unspecified site of unspecified female breast (principal)

== ENCOUNTER → 2020-01-30 | Outpatient (CLI) | payer BC ==
[2019-07-22 08:36] VITALS: BP 125/68
[2020-01-30 07:57] LABS: EOS # 0.1 (0.04-0.40); EOS % 1.6 % (1.0-5.0); HEMATOCRIT 45.4 % (37.0-47.0); LYMPH# 2.5 (1.50-4.00); MEAN CELL VOLUME 96 fl (78-100); MEAN CORPUSCULAR HEMOGLOBIN 32 pg (27-31); MEAN CORPUSCULAR HGB CONC 33 g/dL (33-37); MEAN PLATELET VOLUME 9.9 fl (7.4-10.4); MONO # 0.8 (0.20-0.80); NEU # 4.8 (1.40-6.50); PLATELET COUNT 279 K/mm3 (130-400); RED BLOOD COUNT 4.71 M/mm3 (4.10-5.30); RED CELL DISTRIBUTION WIDTH 13.2 % (11.5-14.5); WHITE BLOOD COUNT 8.3 K/mm3 (4.8-10.8)
[2020-01-30 08:02] LABS: ALBUMIN 4.6 g/dL (3.5-5.0)
[2020-01-30 08:03] LABS: CALCIUM 9.7 mg/dL (8.3-10.5)
[2020-01-30 08:04] LABS: TOTAL PROTEIN 8.1 g/dL (6.4-8.3)
[2020-01-30 08:06] LABS: TOTAL BILIRUBIN 0.4 mg/dL (0.2-1.2)
== END ==
LOC: RAD 07:33
PROVIDERS: Internal Medicine
DX: C50.919 Malignant neoplasm of unspecified site of unspecified female breast (principal); K80.10 Calculus of gallbladder with chronic cholecystitis without obstruction; K83.9 Disease of biliary tract, unspecified

== ENCOUNTER → 2020-02-11 | Outpatient (CLI) | payer BC ==
[2019-07-22 08:36] VITALS: BP 125/68
[~2020-02-11] MED LIST changes: +CARAFATE 1GM1 G PO; +NEXIUM20 MG; +ROXICODONE 55 MG/TAB PO; +TEMAZEPAM30 M1 PO
[2020-02-11 11:43] LABS: EOS # 0.1 (0.04-0.40); EOS % 1.1 % (1.0-5.0); HEMATOCRIT 46.7 % (37.0-47.0); LYMPH# 2.3 (1.50-4.00); MEAN CELL VOLUME 97 fl (78-100); MEAN CORPUSCULAR HEMOGLOBIN 31 pg (27-31); MEAN CORPUSCULAR HGB CONC 32 g/dL (33-37); MEAN PLATELET VOLUME 10.5 fl (7.4-10.4); MONO # 0.7 (0.20-0.80); NEU # 5.1 (1.40-6.50); PLATELET COUNT 261 K/mm3 (130-400); RED BLOOD COUNT 4.81 M/mm3 (4.10-5.30); RED CELL DISTRIBUTION WIDTH 13.3 % (11.5-14.5); WHITE BLOOD COUNT 8.1 K/mm3 (4.8-10.8)
[2020-02-11 11:47] LABS: ALBUMIN 4.8 g/dL (3.5-5.0)
[2020-02-11 11:48] LABS: POTASSIUM 3.8 mmol/L (3.5-5.1)
[2020-02-11 11:50] LABS: TOTAL PROTEIN 7.8 g/dL (6.4-8.3)
[2020-02-11 11:52] LABS: TOTAL BILIRUBIN 0.3 mg/dL (0.2-1.2)
== END ==
LOC: LAB 11:06
PROVIDERS: Surgery
DX: Z01.812 Encounter for preprocedural laboratory examination (principal); C50.411 Malignant neoplasm of upper-outer quadrant of right female breast

== ENCOUNTER → 2020-02-17 | Day surgery (SDC) | payer BC ==
[2019-07-22 08:36] VITALS: BP 125/68
== END ==
LOC: MSO 07:29
DX: K29.50 Unspecified chronic gastritis without bleeding (principal); R11.2 Nausea with vomiting, unspecified; R63.4 Abnormal weight loss; K21.9 Gastro-esophageal reflux disease without esophagitis; F17.210 Nicotine dependence, cigarettes, uncomplicated; Z79.899 Other long term (current) drug therapy; Z88.0 Allergy status to penicillin; Z90.13 Acquired absence of bilateral breasts and nipples; Z85.3 Personal history of malignant neoplasm of breast
CPT/HCPCS: 00731; J2704; J7120

== ENCOUNTER 2020-02-26 12:10 | Emergency (ER) | payer BC ==
[~2020-02-26 12:10] MED LIST changes: -CARAFATE 1GM1 G PO; -NEXIUM20 MG; -ROXICODONE 55 MG/TAB PO; -TEMAZEPAM30 M1 PO
[2020-02-26 12:58] LABS: EOS # 0.1 (0.04-0.40); EOS % 1.6 % (1.0-5.0); HEMATOCRIT 45.2 % (37.0-47.0); HEMOGLOBIN 14.9 g/dL (12.5-16.0); MEAN CELL VOLUME 95 fl (78-100); MEAN CORPUSCULAR HEMOGLOBIN 31 pg (27-31); MEAN CORPUSCULAR HGB CONC 33 g/dL (33-37); MEAN PLATELET VOLUME 10.2 fl (7.4-10.4); MONO # 0.7 (0.20-0.80); NEU # 3.6 (1.40-6.50); PLATELET COUNT 245 K/mm3 (130-400); RED BLOOD COUNT 4.75 M/mm3 (4.10-5.30); WHITE BLOOD COUNT 7.5 K/mm3 (4.8-10.8)
[2020-02-26 13:04] LABS: ALBUMIN 4.4 g/dL (3.5-5.0)
[2020-02-26 13:05] LABS: POTASSIUM 3.1 mmol/L (3.5-5.1)
[2020-02-26 13:06] LABS: CALCIUM 9.8 mg/dL (8.3-10.5)
[2020-02-26 13:07] LABS: TOTAL PROTEIN 7.5 g/dL (6.4-8.3)
[2020-02-26 13:09] LABS: TOTAL BILIRUBIN 0.5 mg/dL (0.2-1.2)
[2020-02-26] MEDS ORDERED: TEMAZEPAM30 M1 PO (13:31)
[2020-02-26] MEDS ORDERED: ROXICODONE 55 MG/TAB PO (13:31)
[2020-02-26] MEDS ORDERED: NEXIUM20 MG (13:32)
[2020-02-26] MEDS ORDERED: CARAFATE 1GM1 G PO (13:33)
[2020-02-26 14:25] VITALS: BP 125/82
== END 2020-02-26 14:34 | disposition home or self-care (01) ==
LOC: ED 12:10
PROVIDERS: Physician Assistant
DX: R11.0 Nausea (principal); E87.6 Hypokalemia; F17.210 Nicotine dependence, cigarettes, uncomplicated; Z85.3 Personal history of malignant neoplasm of breast; Z85.05 Personal history of malignant neoplasm of liver; Z85.830 Personal history of malignant neoplasm of bone; Z88.0 Allergy status to penicillin; Z79.891 Long term (current) use of opiate analgesic; Z79.899 Other long term (current) drug therapy
CPT/HCPCS: J1644; J2405; J7030

== ENCOUNTER → 2020-02-27 | Outpatient (CLI) | payer BC ==
[2020-02-26 14:25] VITALS: BP 125/82
[~2020-02-27] MED LIST changes: +CARAFATE 1GM1 G PO; +NEXIUM20 MG; +ROXICODONE 55 MG/TAB PO; +TEMAZEPAM30 M1 PO
== END ==
LOC: LAB 16:28
DX: Z01.818 Encounter for other preprocedural examination (principal); Z20.828 Contact with and (suspected) exposure to other viral communicable diseases

== ENCOUNTER 2020-03-07 12:26 | Emergency (ER) | payer BC ==
[2020-03-07 13:14] LABS: POTASSIUM 3.5 mmol/L (3.5-5.1)
[2020-03-07 13:15] LABS: ALBUMIN 4.3 g/dL (3.5-5.0)
[2020-03-07 13:16] LABS: CALCIUM 10.2 mg/dL (8.3-10.5); HEMATOCRIT 47.4 % (37.0-47.0); HEMOGLOBIN 15.7 g/dL (12.5-16.0); MEAN CELL VOLUME 94 fl (78-100); MEAN CORPUSCULAR HEMOGLOBIN 31 pg (27-31); MEAN CORPUSCULAR HGB CONC 33 g/dL (33-37); MEAN PLATELET VOLUME 10.4 fl (7.4-10.4); PLATELET COUNT 236 K/mm3 (130-400); RED BLOOD COUNT 5.07 M/mm3 (4.10-5.30); RED CELL DISTRIBUTION WIDTH 13.1 % (11.5-14.5); WHITE BLOOD COUNT 9.1 K/mm3 (4.8-10.8)
[2020-03-07 13:17] LABS: TOTAL PROTEIN 7.5 g/dL (6.4-8.3)
[2020-03-07 13:19] LABS: TOTAL BILIRUBIN 0.6 mg/dL (0.2-1.2)
[2020-03-07 13:26] LABS: BAND 0 % (0-10); LYMPHOCYTE 10 % (20-51); MONOCYTE 1 % (3-10); NEUTROPHILS 88 % (42-75)
[2020-03-07 15:52] LABS: PH-URINE 5.5 (5.0 - 8.0); URINE APPEARANCE CLEAR; URINE BILIRUBIN NEGATIVE (NEGATIVE); URINE BLOOD NEGATIVE (NEGATIVE); URINE COLOR YELLOW; URINE GLUCOSE NEGATIVE (NEGATIVE); URINE KETONE 3+ (NEGATIVE); URINE LEUKOCYTE ESTERASE NEGATIVE (NEGATIVE); URINE MUCUS PRESENT (NOT PRESENT); URINE NITRATE NEGATIVE (NEGATIVE); URINE PROTEIN(semi-quant) 3+ mg/dL (NEGATIVE); URINE UROBILINOGEN NORMAL (NORMAL)
[2020-03-07] MEDS ORDERED: REGLAN5 M1 PO (17:25)
[2020-03-07 17:40] VITALS: BP 110/56
== END 2020-03-07 17:45 | disposition home or self-care (01) ==
LOC: ED 12:26
PROVIDERS: Physician Assistant
DX: C79.81 Secondary malignant neoplasm of breast (principal); R11.2 Nausea with vomiting, unspecified; F17.210 Nicotine dependence, cigarettes, uncomplicated; Z90.49 Acquired absence of other specified parts of digestive tract; Z88.1 Allergy status to other antibiotic agents
CPT/HCPCS: J2060; J2765; J7120

== ENCOUNTER 2020-03-15 11:05 | Emergency (ER) | payer BC ==
[~2020-03-15] VITALS: Ht 167.6 cm; Wt 42.7 kg
[~2020-03-15 11:05] MED LIST changes: +REGLAN5 M1 PO
[2020-03-15 12:00] LABS: POTASSIUM 3.5 mmol/L (3.5-5.1)
[2020-03-15 12:01] LABS: CALCIUM 9.9 mg/dL (8.3-10.5)
[2020-03-15 12:52] VITALS: BP 97/73
== END 2020-03-15 12:52 | disposition home or self-care (01) ==
LOC: ED 11:05
PROVIDERS: Family Medicine
DX: R25.3 Fasciculation (principal); F17.200 Nicotine dependence, unspecified, uncomplicated; Z85.3 Personal history of malignant neoplasm of breast; Z90.49 Acquired absence of other specified parts of digestive tract; Z88.1 Allergy status to other antibiotic agents

== ENCOUNTER 2020-03-19 13:39 | Emergency (ER) | payer MEDICARE, BC ==
[2020-03-19 14:36] LABS: ALBUMIN 3.8 g/dL (3.5-5.0); EOS # 0.1 (0.04-0.40); EOS % 0.5 % (1.0-5.0); HEMATOCRIT 39.4 % (37.0-47.0); HEMOGLOBIN 12.8 g/dL (12.5-16.0); LYMPH# 1.9 (1.50-4.00); MEAN CELL VOLUME 96 fl (78-100); MEAN CORPUSCULAR HEMOGLOBIN 31 pg (27-31); MEAN CORPUSCULAR HGB CONC 33 g/dL (33-37); MEAN PLATELET VOLUME 10.6 fl (7.4-10.4); MONO # 1.2 (0.20-0.80); NEU # 7.3 (1.40-6.50); PLATELET COUNT 226 K/mm3 (130-400); POTASSIUM 3.6 mmol/L (3.5-5.1); RED BLOOD COUNT 4.09 M/mm3 (4.10-5.30); RED CELL DISTRIBUTION WIDTH 13.4 % (11.5-14.5); WHITE BLOOD COUNT 10.5 K/mm3 (4.8-10.8)
[2020-03-19 14:37] LABS: CALCIUM 9.1 mg/dL (8.3-10.5)
[2020-03-19 14:38] LABS: TOTAL PROTEIN 6.8 g/dL (6.4-8.3)
[2020-03-19 14:40] LABS: TOTAL BILIRUBIN 0.5 mg/dL (0.2-1.2)
[2020-03-19 16:41] VITALS: BP 100/62
== END 2020-03-19 16:28 | disposition home or self-care (01) ==
LOC: ED 13:39
PROVIDERS: Nurse Practitioner Family
DX: C79.81 Secondary malignant neoplasm of breast (principal); E86.0 Dehydration; R11.0 Nausea; F17.200 Nicotine dependence, unspecified, uncomplicated; Z90.49 Acquired absence of other specified parts of digestive tract; Z88.1 Allergy status to other antibiotic agents
CPT/HCPCS: J2405; J7120

== ENCOUNTER → 2020-03-23 | Outpatient (CLI) | payer MEDICARE, BC ==
[2020-03-19 16:41] VITALS: BP 100/62
[~2020-03-23] VITALS: Ht 167.6 cm; Wt 42.7 kg
[2020-03-23 11:52] LABS: HEMATOCRIT 37.9 % (37.0-47.0); HEMOGLOBIN 12.5 g/dL (12.5-16.0); MEAN CELL VOLUME 96 fl (78-100); MEAN CORPUSCULAR HEMOGLOBIN 32 pg (27-31); MEAN CORPUSCULAR HGB CONC 33 g/dL (33-37); MEAN PLATELET VOLUME 10.4 fl (7.4-10.4); PLATELET COUNT 256 K/mm3 (130-400); RED BLOOD COUNT 3.97 M/mm3 (4.10-5.30); RED CELL DISTRIBUTION WIDTH 13.2 % (11.5-14.5); WHITE BLOOD COUNT 13.3 K/mm3 (4.8-10.8)
[2020-03-23 12:13] LABS: EOS % 0.2 % (1.0-5.0); MONO # 1.5 (0.20-0.80)
[2020-03-23 12:15] LABS: ALBUMIN 3.6 g/dL (3.5-5.0)
[2020-03-23 12:16] LABS: POTASSIUM 3.8 mmol/L (3.5-5.1)
[2020-03-23 12:17] LABS: CALCIUM 9.2 mg/dL (8.3-10.5)
[2020-03-23 12:20] LABS: LYMPHOCYTE 6 % (20-51); MONOCYTE 10 % (3-10); NEU # 10.8 (1.40-6.50); NEUTROPHILS 84 % (42-75); TOTAL BILIRUBIN 0.8 mg/dL (0.2-1.2)
== END ==
LOC: RAD 09:30 → AMSURD 10:17 → LAB 10:17
DX: C50.411 Malignant neoplasm of upper-outer quadrant of right female breast (principal); I82.402 Acute embolism and thrombosis of unspecified deep veins of left lower extremity
CPT/HCPCS: J1644

== ENCOUNTER → 2020-03-31 | Outpatient (CLI) | payer MEDICARE, BC ==
[2020-03-19 16:41] VITALS: BP 100/62
== END ==
LOC: RAD 07:00
DX: C50.919 Malignant neoplasm of unspecified site of unspecified female breast (principal); G93.9 Disorder of brain, unspecified
CPT/HCPCS: A9585

== ENCOUNTER → 2020-05-18 | Outpatient (CLI) | payer MEDICARE, BC ==
[~2020-05-18] MED LIST changes: +ATIVAN 2MG2 MG PO; +ESOMEPRAZOLE MA40 M1 PO; +ONDANSETRON HYDR8 MG PO; +OXYCODONE HCL10 M1 PO; +REMERON15 MG PO; +XARELTO20 MG PO
[2020-05-18 11:43] LABS: EOS % 0.5 % (1.0-5.0); HEMATOCRIT 44.5 % (37.0-47.0); HEMOGLOBIN 14.3 g/dL (12.5-16.0); MEAN CELL VOLUME 102 fl (78-100); MEAN CORPUSCULAR HEMOGLOBIN 33 pg (27-31); MEAN CORPUSCULAR HGB CONC 32 g/dL (33-37); MEAN PLATELET VOLUME 8.9 fl (7.4-10.4); MONO # 0.9 (0.20-0.80); NEU # 4.8 (1.40-6.50); PLATELET COUNT 300 K/mm3 (130-400); RED BLOOD COUNT 4.37 M/mm3 (4.10-5.30); RED CELL DISTRIBUTION WIDTH 18.7 % (11.5-14.5); WHITE BLOOD COUNT 7.7 K/mm3 (4.8-10.8)
[2020-05-18 11:52] LABS: POTASSIUM 4.3 mmol/L (3.5-5.1)
[2020-05-18 11:53] LABS: CALCIUM 9.5 mg/dL (8.3-10.5)
[2020-05-18 11:55] LABS: TOTAL PROTEIN 7.4 g/dL (6.4-8.3)
[2020-05-18 11:56] LABS: TOTAL BILIRUBIN 0.5 mg/dL (0.2-1.2)
[2020-05-19 23:11] LABS: CA 15-3 27.1 U/mL (0.0-31.3)
[2020-05-21 09:38] LABS: CA 27.29 36.8 U/mL (<=38.0)
== END ==
LOC: LAB 11:19
PROVIDERS: Internal Medicine
DX: C50.411 Malignant neoplasm of upper-outer quadrant of right female breast (principal)

== ENCOUNTER → 2020-06-04 | Outpatient (CLI) | payer MEDICARE, BC ==
[2020-06-04 11:16] LABS: EOS # 0.1 (0.04-0.40); EOS % 0.9 % (1.0-5.0); HEMATOCRIT 41.4 % (37.0-47.0); HEMOGLOBIN 13.6 g/dL (12.5-16.0); LYMPH# 1.9 (1.50-4.00); MEAN CELL VOLUME 103 fl (78-100); MEAN CORPUSCULAR HEMOGLOBIN 34 pg (27-31); MEAN CORPUSCULAR HGB CONC 33 g/dL (33-37); MEAN PLATELET VOLUME 8.9 fl (7.4-10.4); NEU # 5.5 (1.40-6.50); PLATELET COUNT 355 K/mm3 (130-400); RED BLOOD COUNT 4.04 M/mm3 (4.10-5.30); WHITE BLOOD COUNT 8.5 K/mm3 (4.8-10.8)
[2020-06-04 11:28] LABS: ALBUMIN 3.6 g/dL (3.5-5.0); POTASSIUM 3.8 mmol/L (3.5-5.1)
[2020-06-04 11:30] LABS: CALCIUM 9.3 mg/dL (8.3-10.5)
[2020-06-04 11:31] LABS: TOTAL PROTEIN 6.8 g/dL (6.4-8.3)
[2020-06-04 11:33] LABS: TOTAL BILIRUBIN 0.6 mg/dL (0.2-1.2)
[2020-06-08 10:15] LABS: CA 27.29 28.4 U/mL (<=38.0)
== END ==
LOC: LAB 10:45
PROVIDERS: Internal Medicine
DX: C50.411 Malignant neoplasm of upper-outer quadrant of right female breast (principal)

== ENCOUNTER → 2020-06-26 | Outpatient (CLI) | payer MEDICARE, BC ==
[2020-06-26 14:12] LABS: BASO # 0.03 (0.02-0.10); EOS # 0.06 (0.04-0.40); EOS % 1.4 % (1.0-5.0); HEMATOCRIT 43.1 % (37.0-47.0); HEMOGLOBIN 14.3 g/dL (12.5-16.0); LYMPH# 1.56 (1.50-4.00); MEAN CELL VOLUME 108 fl (78-100); MEAN CORPUSCULAR HEMOGLOBIN 36 pg (27-31); MEAN CORPUSCULAR HGB CONC 33 g/dL (33-37); MEAN PLATELET VOLUME 9.1 fl (7.4-10.4); MONO # 0.52 (0.20-0.80); NEU # 2.27 (1.40-6.50); PLATELET COUNT 274 K/mm3 (130-400); RED BLOOD COUNT 4.01 M/mm3 (4.10-5.30); RED CELL DISTRIBUTION WIDTH 18.4 % (11.5-14.5); WHITE BLOOD COUNT 4.4 K/mm3 (4.8-10.8)
[2020-06-26 14:22] LABS: ALBUMIN 3.4 g/dL (3.5-5.0); POTASSIUM 3.7 mmol/L (3.5-5.1)
[2020-06-26 14:24] LABS: CALCIUM 9.2 mg/dL (8.3-10.5)
[2020-06-26 14:25] LABS: TOTAL PROTEIN 6.3 g/dL (6.4-8.3)
[2020-06-26 14:27] LABS: TOTAL BILIRUBIN 0.6 mg/dL (0.2-1.2)
[2020-06-30 00:28] LABS: CA 15-3 25.5 U/mL (0.0-31.3)
== END ==
LOC: LAB 13:56
PROVIDERS: Internal Medicine
DX: C50.411 Malignant neoplasm of upper-outer quadrant of right female breast (principal)

== ENCOUNTER 2020-07-04 13:38 | Emergency (ER) | payer MEDICARE, BC ==
[~2020-07-04 13:38] MED LIST changes: -ATIVAN 2MG2 MG PO; -ESOMEPRAZOLE MA40 M1 PO; -ONDANSETRON HYDR8 MG PO; -OXYCODONE HCL10 M1 PO; -REMERON15 MG PO; -XARELTO20 MG PO
[2020-07-04 13:47] VITALS: BP 116/85
[2020-07-04] MEDS ORDERED: REMERON15 MG PO (13:55)
[2020-07-04] MEDS ORDERED: ONDANSETRON HYDR8 MG PO (13:55)
[2020-07-04] MEDS ORDERED: OXYCODONE HCL10 M1 PO ×2 (13:55→14:20)
[2020-07-04] MEDS ORDERED: XARELTO20 MG PO (13:56)
[2020-07-04] MEDS ORDERED: ATIVAN 2MG2 MG PO (13:56)
[2020-07-04] MEDS ORDERED: ESOMEPRAZOLE MA40 M1 PO (13:57)
== END 2020-07-04 14:30 | disposition home or self-care (01) ==
LOC: ED 13:38
DX: C79.81 Secondary malignant neoplasm of breast (principal); M89.8X9 Other specified disorders of bone, unspecified site

== ENCOUNTER 2020-07-09 13:28 | Emergency (ER) | payer MEDICARE, BC ==
[~2020-07-09 13:28] MED LIST changes: +ATIVAN 2MG2 MG PO; +ESOMEPRAZOLE MA40 M1 PO; +ONDANSETRON HYDR8 MG PO; +OXYCODONE HCL10 M1 PO; +REMERON15 MG PO; +XARELTO20 MG PO
[2020-07-09 14:40] LABS: ALBUMIN 3.2 g/dL (3.5-5.0)
[2020-07-09 14:41] LABS: POTASSIUM 3.4 mmol/L (3.5-5.1)
[2020-07-09 14:42] LABS: CALCIUM 9.2 mg/dL (8.3-10.5)
[2020-07-09 14:43] LABS: TOTAL PROTEIN 5.8 g/dL (6.4-8.3)
[2020-07-09 14:45] LABS: TOTAL BILIRUBIN 0.6 mg/dL (0.2-1.2)
[2020-07-09 15:29] LABS: URINE APPEARANCE CLEAR; URINE COLOR YELLOW
[2020-07-09 15:30] LABS: PH-URINE 5.5 (5.0 - 8.0); URINE BILIRUBIN NEGATIVE (NEGATIVE); URINE BLOOD NEGATIVE (NEGATIVE); URINE GLUCOSE NEGATIVE (NEGATIVE); URINE KETONE NEGATIVE (NEGATIVE); URINE LEUKOCYTE ESTERASE NEGATIVE (NEGATIVE); URINE NITRATE NEGATIVE (NEGATIVE); URINE PROTEIN(semi-quant) TRACE mg/dL (NEGATIVE); URINE UROBILINOGEN NORMAL (NORMAL)
[2020-07-09 15:31] LABS: URINE MUCUS PRESENT (NOT PRESENT)
[2020-07-09 15:45] LABS: BASO # 0.02 (0.02-0.10); EOS # 0.03 (0.04-0.40); EOS % 0.7 % (1.0-5.0); HEMATOCRIT 39.7 % (37.0-47.0); HEMOGLOBIN 13.6 g/dL (12.5-16.0); LYMPH# 1.38 (1.50-4.00); MEAN CELL VOLUME 105 fl (78-100); MEAN CORPUSCULAR HEMOGLOBIN 36 pg (27-31); MEAN CORPUSCULAR HGB CONC 34 g/dL (33-37); MEAN PLATELET VOLUME 9.9 fl (7.4-10.4); MONO # 0.49 (0.20-0.80); NEU # 2.41 (1.40-6.50); PLATELET COUNT 287 K/mm3 (130-400); RED CELL DISTRIBUTION WIDTH 17.1 % (11.5-14.5); WHITE BLOOD COUNT 4.3 K/mm3 (4.8-10.8)
[2020-07-09 17:54] VITALS: BP 115/68
== END 2020-07-09 17:54 | disposition home or self-care (01) ==
LOC: ED 13:28
PROVIDERS: Nurse Practitioner Family
DX: R10.13 Epigastric pain (principal); R11.2 Nausea with vomiting, unspecified; R25.1 Tremor, unspecified; E46 Unspecified protein-calorie malnutrition; C79.31 Secondary malignant neoplasm of brain; Z90.49 Acquired absence of other specified parts of digestive tract; Z79.01 Long term (current) use of anticoagulants
CPT/HCPCS: J2405

== ENCOUNTER → 2020-07-16 | Outpatient (CLI) | payer MEDICARE, BC ==
[2020-07-09 17:54] VITALS: BP 115/68
[2020-07-16 15:56] LABS: BASO # 0.03 (0.02-0.10); EOS # 0.03 (0.04-0.40); EOS % 0.6 % (1.0-5.0); HEMATOCRIT 38.2 % (37.0-47.0); LYMPH# 1.92 (1.50-4.00); MEAN CELL VOLUME 106 fl (78-100); MEAN CORPUSCULAR HEMOGLOBIN 36 pg (27-31); MEAN CORPUSCULAR HGB CONC 34 g/dL (33-37); MEAN PLATELET VOLUME 9.1 fl (7.4-10.4); MONO # 0.64 (0.20-0.80); NEU # 2.29 (1.40-6.50); PLATELET COUNT 228 K/mm3 (130-400); RED BLOOD COUNT 3.59 M/mm3 (4.10-5.30); RED CELL DISTRIBUTION WIDTH 17.2 % (11.5-14.5); WHITE BLOOD COUNT 4.9 K/mm3 (4.8-10.8)
[2020-07-16 16:12] LABS: ALBUMIN 3.5 g/dL (3.5-5.0); POTASSIUM 3.3 mmol/L (3.5-5.1)
[2020-07-16 16:14] LABS: CALCIUM 8.8 mg/dL (8.3-10.5)
[2020-07-16 16:15] LABS: TOTAL PROTEIN 6.2 g/dL (6.4-8.3)
[2020-07-16 16:17] LABS: TOTAL BILIRUBIN 0.6 mg/dL (0.2-1.2)
[2020-07-17 05:10] LABS: CA 15-3 18.3 U/mL (0.0-31.3)
[2020-07-23 09:27] LABS: CA 27.29 22.4 U/mL (<=38.0)
== END ==
LOC: RAD 07-15 16:15 → LAB 15:42 → RAD 16:15
PROVIDERS: Internal Medicine
DX: C50.411 Malignant neoplasm of upper-outer quadrant of right female breast (principal)
CPT/HCPCS: A9585

== ENCOUNTER → 2020-08-11 | Outpatient (CLI) | payer MEDICARE, BC ==
[2020-08-11 13:24] LABS: BASO # 0.03 (0.02-0.10); EOS # 0.02 (0.04-0.40); EOS % 0.4 % (1.0-5.0); HEMATOCRIT 41.8 % (37.0-47.0); HEMOGLOBIN 14.2 g/dL (12.5-16.0); LYMPH# 1.47 (1.50-4.00); MEAN CELL VOLUME 110 fl (78-100); MEAN CORPUSCULAR HEMOGLOBIN 37 pg (27-31); MEAN CORPUSCULAR HGB CONC 34 g/dL (33-37); MONO # 0.46 (0.20-0.80); NEU # 2.85 (1.40-6.50); PLATELET COUNT 285 K/mm3 (130-400); RED BLOOD COUNT 3.81 M/mm3 (4.10-5.30); RED CELL DISTRIBUTION WIDTH 16.8 % (11.5-14.5); WHITE BLOOD COUNT 4.8 K/mm3 (4.8-10.8)
[2020-08-11 13:34] LABS: ALBUMIN 3.5 g/dL (3.5-5.0); POTASSIUM 3.9 mmol/L (3.5-5.1)
[2020-08-11 13:35] LABS: CALCIUM 9.4 mg/dL (8.3-10.5)
[2020-08-11 13:37] LABS: TOTAL PROTEIN 6.4 g/dL (6.4-8.3)
[2020-08-11 13:38] LABS: TOTAL BILIRUBIN 0.7 mg/dL (0.2-1.2)
[2020-08-13 14:26] LABS: CA 27.29 26.3 U/mL (<=38.0)
== END ==
LOC: LAB 13:07
PROVIDERS: Internal Medicine
DX: C50.419 Malignant neoplasm of upper-outer quadrant of unspecified female breast (principal)

== ENCOUNTER → 2020-09-01 | Outpatient (CLI) | payer MEDICARE, BC ==
[2020-09-01 12:45] LABS: BASO # 0.04 (0.02-0.10); EOS # 0.04 (0.04-0.40); HEMATOCRIT 42.8 % (37.0-47.0); HEMOGLOBIN 14.4 g/dL (12.5-16.0); LYMPH# 1.37 (1.50-4.00); MEAN CELL VOLUME 113 fl (78-100); MEAN CORPUSCULAR HEMOGLOBIN 38 pg (27-31); MEAN CORPUSCULAR HGB CONC 34 g/dL (33-37); MEAN PLATELET VOLUME 9.2 fl (7.4-10.4); MONO # 0.46 (0.20-0.80); NEU # 2.01 (1.40-6.50); PLATELET COUNT 299 K/mm3 (130-400); RED BLOOD COUNT 3.78 M/mm3 (4.10-5.30); RED CELL DISTRIBUTION WIDTH 17.1 % (11.5-14.5); WHITE BLOOD COUNT 3.9 K/mm3 (4.8-10.8)
[2020-09-01 12:55] LABS: ALBUMIN 3.6 g/dL (3.5-5.0); POTASSIUM 4.3 mmol/L (3.5-5.1)
[2020-09-01 12:56] LABS: CALCIUM 9.6 mg/dL (8.3-10.5)
[2020-09-01 12:58] LABS: TOTAL PROTEIN 6.6 g/dL (6.4-8.3)
[2020-09-01 12:59] LABS: TOTAL BILIRUBIN 0.6 mg/dL (0.2-1.2)
[2020-09-02 05:26] LABS: CA 15-3 26.5 U/mL (0.0-31.3)
[2020-09-04 12:37] LABS: CA 27.29 33.2 U/mL (<=38.0)
== END ==
LOC: LAB 12:20
PROVIDERS: Internal Medicine
DX: C50.411 Malignant neoplasm of upper-outer quadrant of right female breast (principal)

== ENCOUNTER → 2020-09-18 | Outpatient (CLI) | payer MEDICARE, BC ==
[2020-09-18 12:48] LABS: BASO # 0.03 (0.02-0.10); EOS # 0.06 (0.04-0.40); EOS % 1.6 % (1.0-5.0); HEMATOCRIT 43.2 % (37.0-47.0); HEMOGLOBIN 14.5 g/dL (12.5-16.0); LYMPH# 1.72 (1.50-4.00); MEAN CELL VOLUME 115 fl (78-100); MEAN CORPUSCULAR HEMOGLOBIN 39 pg (27-31); MEAN CORPUSCULAR HGB CONC 34 g/dL (33-37); NEU # 1.52 (1.40-6.50); PLATELET COUNT 286 K/mm3 (130-400); RED BLOOD COUNT 3.76 M/mm3 (4.10-5.30); RED CELL DISTRIBUTION WIDTH 17.3 % (11.5-14.5); WHITE BLOOD COUNT 3.8 K/mm3 (4.8-10.8)
[2020-09-18 12:52] LABS: ALBUMIN 3.6 g/dL (3.5-5.0); POTASSIUM 3.8 mmol/L (3.5-5.1)
[2020-09-18 12:54] LABS: CALCIUM 9.3 mg/dL (8.3-10.5)
[2020-09-18 12:55] LABS: TOTAL PROTEIN 6.6 g/dL (6.4-8.3)
[2020-09-18 12:57] LABS: TOTAL BILIRUBIN 0.5 mg/dL (0.2-1.2)
[2020-09-19 04:16] LABS: CA 15-3 25.2 U/mL (0.0-31.3)
[2020-09-23 12:30] LABS: CA 27.29 34.6 U/mL (<=38.0)
== END ==
LOC: LAB 12:01
PROVIDERS: Internal Medicine
DX: C50.411 Malignant neoplasm of upper-outer quadrant of right female breast (principal)

== ENCOUNTER → 2020-10-05 | Outpatient (CLI) | payer MEDICARE, BC | LOC: LAB 13:27 | DX: R19.5 Other fecal abnormalities (principal) ==

== ENCOUNTER → 2020-10-08 | Outpatient (CLI) | payer MEDICARE, BC | LOC: RAD 16:00 | DX: C50.919 Malignant neoplasm of unspecified site of unspecified female breast (principal); C79.31 Secondary malignant neoplasm of brain | CPT/HCPCS: A9585 ==

== ENCOUNTER → 2020-10-13 | Outpatient (CLI) | payer MEDICARE, BC ==
[~2020-10-13] VITALS: Ht 167.6 cm; Wt 36.4 kg
[2020-10-13 13:28] VITALS: BP 102/84
[2020-10-13 14:35] LABS: BASO # 0.01 (0.02-0.10); EOS # 0.04 (0.04-0.40); EOS % 0.9 % (1.0-5.0); HEMATOCRIT 39.7 % (37.0-47.0); HEMOGLOBIN 13.5 g/dL (12.5-16.0); LYMPH# 1.71 (1.50-4.00); MEAN CELL VOLUME 113 fl (78-100); MEAN CORPUSCULAR HEMOGLOBIN 39 pg (27-31); MEAN CORPUSCULAR HGB CONC 34 g/dL (33-37); MEAN PLATELET VOLUME 9.9 fl (7.4-10.4); NEU # 2.32 (1.40-6.50); PLATELET COUNT 269 K/mm3 (130-400); RED BLOOD COUNT 3.51 M/mm3 (4.10-5.30); RED CELL DISTRIBUTION WIDTH 15.9 % (11.5-14.5); WHITE BLOOD COUNT 4.4 K/mm3 (4.8-10.8)
[2020-10-13 14:38] LABS: ALBUMIN 3.5 g/dL (3.5-5.0); POTASSIUM 3.3 mmol/L (3.5-5.1)
[2020-10-13 14:39] LABS: CALCIUM 9.4 mg/dL (8.3-10.5)
[2020-10-13 14:40] LABS: TOTAL PROTEIN 6.4 g/dL (6.4-8.3)
[2020-10-13 14:42] LABS: TOTAL BILIRUBIN 0.7 mg/dL (0.2-1.2)
[2020-10-14 04:45] LABS: CA 15-3 27.1 U/mL (0.0-31.3)
[2020-10-15 14:20] LABS: CA 27.29 29.1 U/mL (<=38.0)
== END ==
LOC: AMSURD 12:20
PROVIDERS: Internal Medicine
DX: C50.411 Malignant neoplasm of upper-outer quadrant of right female breast (principal)
CPT/HCPCS: J1644

== ENCOUNTER → 2020-11-10 | Outpatient (CLI) | payer MEDICARE, BC ==
[2020-11-10 12:36] LABS: BASO # 0.03 (0.02-0.10); EOS # 0.08 (0.04-0.40); EOS % 1.7 % (1.0-5.0); HEMOGLOBIN 13.1 g/dL (12.5-16.0); LYMPH# 1.75 (1.50-4.00); MEAN CELL VOLUME 119 fl (78-100); MEAN CORPUSCULAR HEMOGLOBIN 40 pg (27-31); MEAN CORPUSCULAR HGB CONC 34 g/dL (33-37); MEAN PLATELET VOLUME 9.7 fl (7.4-10.4); MONO # 0.57 (0.20-0.80); NEU # 2.26 (1.40-6.50); PLATELET COUNT 281 K/mm3 (130-400); RED BLOOD COUNT 3.29 M/mm3 (4.10-5.30); RED CELL DISTRIBUTION WIDTH 18.2 % (11.5-14.5); WHITE BLOOD COUNT 4.7 K/mm3 (4.8-10.8)
[2020-11-10 12:42] LABS: ALBUMIN 3.5 g/dL (3.5-5.0); POTASSIUM 4.7 mmol/L (3.5-5.1)
[2020-11-10 12:44] LABS: CALCIUM 9.6 mg/dL (8.3-10.5)
[2020-11-10 12:45] LABS: TOTAL PROTEIN 6.3 g/dL (6.4-8.3)
[2020-11-10 12:47] LABS: TOTAL BILIRUBIN 0.4 mg/dL (0.2-1.2)
[2020-11-11 04:45] LABS: CA 15-3 25.2 U/mL (0.0-31.3)
[2020-11-16 11:39] LABS: CA 27.29 27.4 U/mL (<=38.0)
== END ==
LOC: LAB 11:56
PROVIDERS: Internal Medicine
DX: C50.919 Malignant neoplasm of unspecified site of unspecified female breast (principal)

== ENCOUNTER → 2020-12-01 | Outpatient (CLI) | payer MEDICARE, BC ==
[2020-12-01 13:00] LABS: BASO # 0.01 K/mm3 (0.02-0.10); EOS # 0.07 K/mm3 (0.04-0.40); EOS % 1.6 % (1.0-5.0); HEMATOCRIT 41.9 % (37.0-47.0); HEMOGLOBIN 14.2 g/dL (12.5-16.0); MEAN CELL VOLUME 117 fl (78-100); MEAN CORPUSCULAR HEMOGLOBIN 40 pg (27-31); MEAN CORPUSCULAR HGB CONC 34 g/dL (33-37); MEAN PLATELET VOLUME 9.6 fl (7.4-10.4); NEU # 2.02 K/mm3 (1.40-6.50); PLATELET COUNT 245 K/mm3 (130-400); RED BLOOD COUNT 3.58 M/mm3 (4.10-5.30); RED CELL DISTRIBUTION WIDTH 17.1 % (11.5-14.5); WHITE BLOOD COUNT 4.4 K/mm3 (4.8-10.8)
[2020-12-01 13:03] LABS: ALBUMIN 3.8 g/dL (3.5-5.0); POTASSIUM 3.6 mmol/L (3.5-5.1)
[2020-12-01 13:04] LABS: CALCIUM 9.7 mg/dL (8.3-10.5)
[2020-12-01 13:05] LABS: TOTAL PROTEIN 6.8 g/dL (6.4-8.3)
[2020-12-01 13:07] LABS: TOTAL BILIRUBIN 0.5 mg/dL (0.2-1.2)
[2020-12-03 05:09] LABS: CA 15-3 29.4 U/mL (0.0-31.3)
[2020-12-04 10:21] LABS: CA 27.29 31.3 U/mL (<=38.0)
== END ==
LOC: LAB 12:12
PROVIDERS: Internal Medicine
DX: C50.411 Malignant neoplasm of upper-outer quadrant of right female breast (principal)

== ENCOUNTER → 2020-12-21 | Outpatient (CLI) | payer MEDICARE, BC ==
[2020-12-21 11:40] LABS: BASO # 0.02 K/mm3 (0.02-0.10); EOS % 1.5 % (1.0-5.0); HEMATOCRIT 40.8 % (37.0-47.0); HEMOGLOBIN 13.7 g/dL (12.5-16.0); LYMPH# 3.09 K/mm3 (1.50-4.00); MEAN CELL VOLUME 119 fl (78-100); MEAN CORPUSCULAR HEMOGLOBIN 40 pg (27-31); MEAN CORPUSCULAR HGB CONC 34 g/dL (33-37); MEAN PLATELET VOLUME 9.6 fl (7.4-10.4); NEU # 2.79 K/mm3 (1.40-6.50); PLATELET COUNT 251 K/mm3 (130-400); RED BLOOD COUNT 3.44 M/mm3 (4.10-5.30); RED CELL DISTRIBUTION WIDTH 16.8 % (11.5-14.5); WHITE BLOOD COUNT 6.7 K/mm3 (4.8-10.8)
[2020-12-21 11:55] LABS: ALBUMIN 3.5 g/dL (3.5-5.0); POTASSIUM 3.5 mmol/L (3.5-5.1)
[2020-12-21 11:57] LABS: CALCIUM 9.6 mg/dL (8.3-10.5)
[2020-12-21 11:58] LABS: TOTAL PROTEIN 6.6 g/dL (6.4-8.3)
[2020-12-21 12:00] LABS: TOTAL BILIRUBIN 0.4 mg/dL (0.2-1.2)
[2020-12-23 03:50] LABS: CA 15-3 26.5 U/mL (0.0-31.3)
[2020-12-29 15:01] LABS: CA 27.29 25.4 U/mL (<=38.0)
== END ==
LOC: LAB 11:23
PROVIDERS: Internal Medicine
DX: C50.411 Malignant neoplasm of upper-outer quadrant of right female breast (principal)

== ENCOUNTER → 2021-01-11 | Outpatient (CLI) | payer MEDICARE, BC ==
[~2021-01-11] VITALS: Ht 167.6 cm; Wt 36.4 kg
[2021-01-11 18:20] LABS: BASO # 0.01 K/mm3 (0.02-0.10); EOS # 0.07 K/mm3 (0.04-0.40); EOS % 1.3 % (1.0-5.0); HEMATOCRIT 40.2 % (37.0-47.0); HEMOGLOBIN 13.9 g/dL (12.5-16.0); LYMPH# 1.42 K/mm3 (1.50-4.00); MEAN CELL VOLUME 115 fl (78-100); MEAN CORPUSCULAR HEMOGLOBIN 40 pg (27-31); MEAN CORPUSCULAR HGB CONC 35 g/dL (33-37); MEAN PLATELET VOLUME 10.8 fl (7.4-10.4); NEU # 3.07 K/mm3 (1.40-6.50); PLATELET COUNT 235 K/mm3 (130-400); RED BLOOD COUNT 3.49 M/mm3 (4.10-5.30); RED CELL DISTRIBUTION WIDTH 16.3 % (11.5-14.5); WHITE BLOOD COUNT 5.3 K/mm3 (4.8-10.8)
[2021-01-11 18:24] LABS: ALBUMIN 3.7 g/dL (3.5-5.0); POTASSIUM 3.8 mmol/L (3.5-5.1)
[2021-01-11 18:26] LABS: CALCIUM 9.6 mg/dL (8.3-10.5)
[2021-01-11 18:27] LABS: TOTAL PROTEIN 6.7 g/dL (6.4-8.3)
[2021-01-11 18:29] LABS: TOTAL BILIRUBIN 0.2 mg/dL (0.2-1.2)
[2021-01-11 18:46] VITALS: BP 98/74
[2021-01-13 04:24] LABS: CA 15-3 24.4 U/mL (0.0-31.3)
[2021-01-13 14:30] LABS: CA 27.29 26.7 U/mL (<=38.0)
== END ==
LOC: AMSURD 16:38 → LAB 16:38
PROVIDERS: Internal Medicine
DX: C50.411 Malignant neoplasm of upper-outer quadrant of right female breast (principal); C79.31 Secondary malignant neoplasm of brain; C79.51 Secondary malignant neoplasm of bone
CPT/HCPCS: J1644

== ENCOUNTER → 2021-01-14 | Outpatient (CLI) | payer MEDICARE, BC | LOC: RAD 15:46 | DX: C50.411 Malignant neoplasm of upper-outer quadrant of right female breast (principal); C79.31 Secondary malignant neoplasm of brain | CPT/HCPCS: A9585 ==

== ENCOUNTER 2021-01-25 17:53 | Outpatient (RCR) | payer MEDICARE, BC ==
[~2021-01-25] VITALS: Ht 167.6 cm; Wt 36.4 kg
[2021-01-25 18:56] VITALS: BP 117/74
== END 2021-03-15 | disposition home or self-care (01) ==
LOC: AMSURD
DX: C50.919 Malignant neoplasm of unspecified site of unspecified female breast (principal)
CPT/HCPCS: J1644

== ENCOUNTER → 2021-01-25 | Outpatient (CLI) | payer MEDICARE, BC ==
[2021-01-25 18:57] LABS: URINE WBC 0 /hpf (0-3)
[2021-01-25 20:25] LABS: URINE APPEARANCE CLEAR; URINE BILIRUBIN NEGATIVE (NEGATIVE); URINE BLOOD NEGATIVE (NEGATIVE); URINE COLOR YELLOW; URINE GLUCOSE NEGATIVE (NEGATIVE); URINE KETONE NEGATIVE (NEGATIVE); URINE LEUKOCYTE ESTERASE NEGATIVE (NEGATIVE); URINE NITRATE NEGATIVE (NEGATIVE); URINE PROTEIN(semi-quant) TRACE mg/dL (NEGATIVE); URINE UROBILINOGEN NORMAL (NORMAL)
[2021-01-25 20:26] LABS: URINE MUCUS PRESENT (NOT PRESENT)
== END ==
LOC: LAB 17:39
PROVIDERS: Internal Medicine
DX: C50.411 Malignant neoplasm of upper-outer quadrant of right female breast (principal); C79.31 Secondary malignant neoplasm of brain; C79.51 Secondary malignant neoplasm of bone; R50.9 Fever, unspecified

== ENCOUNTER → 2021-02-03 | Outpatient (CLI) | payer MEDICARE, BC ==
[2021-02-03 14:17] LABS: BASO # 0.03 K/mm3 (0.02-0.10); EOS # 0.06 K/mm3 (0.04-0.40); EOS % 1.2 % (1.0-5.0); HEMATOCRIT 39.3 % (37.0-47.0); HEMOGLOBIN 13.2 g/dL (12.5-16.0); MEAN CELL VOLUME 117 fl (78-100); MEAN CORPUSCULAR HEMOGLOBIN 39 pg (27-31); MEAN CORPUSCULAR HGB CONC 34 g/dL (33-37); MEAN PLATELET VOLUME 9.9 fl (7.4-10.4); MONO # 0.76 K/mm3 (0.20-0.80); NEU # 2.63 K/mm3 (1.40-6.50); PLATELET COUNT 234 K/mm3 (130-400); RED BLOOD COUNT 3.35 M/mm3 (4.10-5.30); RED CELL DISTRIBUTION WIDTH 16.3 % (11.5-14.5); WHITE BLOOD COUNT 5.1 K/mm3 (4.8-10.8)
[2021-02-03 14:36] LABS: ALBUMIN 3.8 g/dL (3.5-5.0); POTASSIUM 3.6 mmol/L (3.5-5.1)
[2021-02-03 14:37] LABS: CALCIUM 9.5 mg/dL (8.3-10.5)
[2021-02-03 14:39] LABS: TOTAL PROTEIN 6.6 g/dL (6.4-8.3)
[2021-02-03 14:40] LABS: TOTAL BILIRUBIN 0.3 mg/dL (0.2-1.2)
[2021-02-05 04:30] LABS: CA 15-3 23.6 U/mL (0.0-31.3)
[2021-02-08 11:14] LABS: CA 27.29 30.2 U/mL (<=38.0)
== END ==
LOC: LAB 13:59
PROVIDERS: Internal Medicine
DX: C50.411 Malignant neoplasm of upper-outer quadrant of right female breast (principal)

== ENCOUNTER → 2021-03-03 | Outpatient (CLI) | payer MEDICARE, BC ==
[2021-03-03 16:02] LABS: BASO # 0.02 K/mm3 (0.02-0.10); EOS # 0.07 K/mm3 (0.04-0.40); EOS % 1.5 % (1.0-5.0); HEMATOCRIT 39.8 % (37.0-47.0); HEMOGLOBIN 13.4 g/dL (12.5-16.0); LYMPH# 1.68 K/mm3 (1.50-4.00); MEAN CELL VOLUME 116 fl (78-100); MEAN CORPUSCULAR HEMOGLOBIN 39 pg (27-31); MEAN CORPUSCULAR HGB CONC 34 g/dL (33-37); MEAN PLATELET VOLUME 9.8 fl (7.4-10.4); MONO # 0.66 K/mm3 (0.20-0.80); NEU # 2.31 K/mm3 (1.40-6.50); PLATELET COUNT 227 K/mm3 (130-400); RED BLOOD COUNT 3.44 M/mm3 (4.10-5.30); RED CELL DISTRIBUTION WIDTH 16.6 % (11.5-14.5); WHITE BLOOD COUNT 4.8 K/mm3 (4.8-10.8)
[2021-03-03 16:21] LABS: ALBUMIN 3.7 g/dL (3.5-5.0); POTASSIUM 3.6 mmol/L (3.5-5.1)
[2021-03-03 16:23] LABS: CALCIUM 9.5 mg/dL (8.3-10.5)
[2021-03-03 16:24] LABS: TOTAL PROTEIN 6.5 g/dL (6.4-8.3)
[2021-03-03 16:26] LABS: TOTAL BILIRUBIN 0.3 mg/dL (0.2-1.2)
[2021-03-05 04:37] LABS: CA 15-3 28.4 U/mL (0.0-31.3)
[2021-03-08 10:15] LABS: CA 27.29 27.1 U/mL (<=38.0)
== END ==
LOC: LAB 15:45
PROVIDERS: Internal Medicine
DX: C50.411 Malignant neoplasm of upper-outer quadrant of right female breast (principal)

== ENCOUNTER → 2021-04-01 | Outpatient (CLI) | payer MEDICARE, BC ==
[2021-04-01 15:23] LABS: BASO # 0.03 K/mm3 (0.02-0.10); EOS # 0.09 K/mm3 (0.04-0.40); EOS % 1.8 % (1.0-5.0); HEMOGLOBIN 13.6 g/dL (12.5-16.0); LYMPH# 1.75 K/mm3 (1.50-4.00); MEAN CELL VOLUME 116 fl (78-100); MEAN CORPUSCULAR HEMOGLOBIN 39 pg (27-31); MEAN CORPUSCULAR HGB CONC 34 g/dL (33-37); MEAN PLATELET VOLUME 11.7 fl (7.4-10.4); MONO # 0.79 K/mm3 (0.20-0.80); NEU # 2.27 K/mm3 (1.40-6.50); PLATELET COUNT 248 K/mm3 (130-400); RED BLOOD COUNT 3.45 M/mm3 (4.10-5.30); RED CELL DISTRIBUTION WIDTH 16.9 % (11.5-14.5); WHITE BLOOD COUNT 4.9 K/mm3 (4.8-10.8)
[2021-04-01 15:24] LABS: ALBUMIN 3.9 g/dL (3.5-5.0)
[2021-04-01 15:25] LABS: POTASSIUM 3.8 mmol/L (3.5-5.1)
[2021-04-01 15:26] LABS: CALCIUM 9.6 mg/dL (8.3-10.5)
[2021-04-01 15:27] LABS: TOTAL PROTEIN 6.8 g/dL (6.4-8.3)
[2021-04-01 15:29] LABS: TOTAL BILIRUBIN 0.3 mg/dL (0.2-1.2)
[2021-04-02 04:39] LABS: CA 15-3 25.2 U/mL (0.0-31.3)
[2021-04-05 13:40] LABS: CA 27.29 30.7 U/mL (<=38.0)
== END ==
LOC: AMSURD 13:09 → LAB 13:09
PROVIDERS: Internal Medicine
DX: C50.919 Malignant neoplasm of unspecified site of unspecified female breast (principal)

== ENCOUNTER → 2021-04-06 | Outpatient (CLI) | payer MEDICARE, BC | LOC: RAD 08:22 | DX: C50.411 Malignant neoplasm of upper-outer quadrant of right female breast (principal) | CPT/HCPCS: A9585 ==

== ENCOUNTER → 2021-04-19 | Outpatient (CLI) | payer MEDICARE, BC ==
[~2021-04-19] VITALS: Ht 167.6 cm; Wt 42.7 kg
[2021-04-19 16:45] VITALS: BP 113/74
[2021-04-19 17:17] LABS: POTASSIUM 3.6 mmol/L (3.5-5.1)
[2021-04-19 17:18] LABS: CALCIUM 10.2 mg/dL (8.3-10.5)
[2021-04-19 17:19] LABS: TOTAL PROTEIN 6.9 g/dL (6.4-8.3)
[2021-04-19 17:21] LABS: TOTAL BILIRUBIN 0.3 mg/dL (0.2-1.2)
[2021-04-19 17:47] LABS: BASO # 0.01 K/mm3 (0.02-0.10); EOS # 0.05 K/mm3 (0.04-0.40); HEMATOCRIT 39.7 % (37.0-47.0); HEMOGLOBIN 13.6 g/dL (12.5-16.0); LYMPH# 1.56 K/mm3 (1.50-4.00); MEAN CELL VOLUME 116 fl (78-100); MEAN CORPUSCULAR HEMOGLOBIN 40 pg (27-31); MEAN CORPUSCULAR HGB CONC 34 g/dL (33-37); MEAN PLATELET VOLUME 11.9 fl (7.4-10.4); MONO # 0.79 K/mm3 (0.20-0.80); NEU # 2.58 K/mm3 (1.40-6.50); PLATELET COUNT 227 K/mm3 (130-400); RED BLOOD COUNT 3.43 M/mm3 (4.10-5.30); RED CELL DISTRIBUTION WIDTH 17.2 % (11.5-14.5)
[2021-04-20 03:47] LABS: CA 15-3 25.3 U/mL (0.0-31.3)
== END ==
LOC: AMSURD 15:59
PROVIDERS: Internal Medicine
DX: C50.411 Malignant neoplasm of upper-outer quadrant of right female breast (principal)
CPT/HCPCS: J1644